=== PATIENT | female | born 1985 | race Caucasian/White ===

== ENCOUNTER 2018-11-10 07:32 | Inpatient (IN) ==
[2018-11-10] MEDS ORDERED: LACTATED RINGER'S 1,000 ML IV PRN ×3 (08:39→11:53)
[2018-11-10] MEDS ORDERED: OXYTOCIN 30 UNITS/500 ML BAG IV PRN ×3 (08:39→15:23)
--- NOTE | 2018-11-10 08:45 | History & Physical Report ---
Date of Service November 10, 2018 Assessment & Plan (1) Intrahepatic cholestasis of in third trimester: 33 yo at 38.3 wks with ICP, IOL at term VSS Afebrile GBS negative Plan to admit, monitor, Start pitocin and then AROM when able History of Present Illness Chief Complaint: Scheduled induction of labor Primary Care Provider: Serge Sandoval Patient is a 33 yo at 38.3 wks , scheduled IOL for ICP She has been itching for a week and Bile acids were 17 MFM recommended IOL No ctxs/ LOF/ VB +FM No WRIGHT/ Change in vision/ N&V/ epig or RUQ pain Her has been complicated by 1) Smoker 2) h/o anxiety, depression, off meds, Xanax as needed 3) AMA 4) Cholecystitis: seen G.Surgery and surgery was recommended after delivery Allergies Allergy/AdvReac Type Severity Reaction Status Date / Time Sulfa (Sulfonamide Allergy Mild Rash Verified 11/10/18 08:54 Antibiotics) Home Medications Home Medications Medication Instructions Recorded Confirmed Type Multivit/Min/Iron/Fol Ac/Pren 1 tab PO DAILY #0 tab 03/09/15 History ( Vitamin) Ibuprofen 600 mg PO Q4H PRN #30 tab 03/11/15 Rx OXYCODONE/ACETAMINOPHEN 5MG/325MG 1 tab PO Q4H PRN #30 tab 03/11/15 Rx (PERCOCET 5MG/325MG) Patient History Family History Other No history of previous surgery No known health problems Social History Preferred Language: Romanian Communication Ability: Effective Research Laboratory Manager Required: No Beliefs That Will Affect Care: None marital status: Current Living Situation: Spouse Other Information That Helps Us Care for You: No Smoking Status: Current every day smoker Hx Alcohol Use: No Hx Substance Use: No OB History FT in 2014 [employer] History No h/o Genital HSV Remote h/o Chlamydia, treated Review of Systems All systems reviewed & are unremarkable except as noted in HPI & below Physical Exam Vital Signs (Past 24 Hours): Last Vital Signs Temp 36.6 C 11/10/18 07:47 Pulse 86 11/10/18 08:00 Resp 18 11/10/18 07:47 BP 112/71 11/10/18 08:00 Constitutional: WD/WN, vitals as above comfortable Respiratory: normal respiratory effort, lungs clear to auscultation normal respiratory effort Auscultation: lungs clear to auscultation bilaterally Cardiovascular: Rate/Rhythm: regular rate and regular rhythm Heart Sounds: normal S1 and normal S2 Gastrointestinal (Abdomen): Abd: soft, NT, Gravid Genitourinary: Cervix: 3/ 30%/ -3 Monitoring External Monitor Categ I Tocodynamometer Ctxs q2-4 min
[2018-11-10 09:14] LABS: Hematocrit (blood only) 36.8 % (37-47); Hemoglobin 12.8 g/dL (12.0-16.0); Mean Corpuscular Volume 96.1 fL (80-100); Platelet Count 222 K/uL (130-400); RDW Coefficient of Variation 14.2 % (11.5-14.5); RDW Standard Deviation 49.8 fL (36.4-46.3); Red Blood Count 3.83 M/uL (4.2-5.4); White Blood Count 13.58 K/uL (4.8-10.8)
[2018-11-10 09:15] LABS: Mean Corpuscular Hgb Conc 34.8 g/dL (32-36)
[2018-11-10] MEDS: LACTATED RINGER'S 1,000 ML IV SCH ×2 (09:30→14:37)
[2018-11-10 09:50] LABS: Albumin Level 2.3 gm/dl (3.4-5.0); BUN Creatinine Ratio 13.5 (10-20); Creatinine Clr Calc Pharmacy 150.7 ml/min; Est GFR (African American) 135.4; Est GFR (Non-African American) 116.8; Potassium 3.6 mmol/L (3.5-5.1)
[2018-11-10 09:51] LABS: Albumin Globulin Ratio 0.6 (0.9-2); Bilirubin,Total 0.5 mg/dl (0.2-1); Globulin 3.9 gm/dl (2.5-4.0); Total Protein 6.2 gm/dl (6.4-8.2)
[2018-11-10] MEDS ORDERED: BUPIVACAINE 0.25% 30 ML VIAL ONE ×2 (11:27→14:34)
[2018-11-10] MEDS ORDERED: ePHEDrine sulfate 50 MG/ML AMP ONE (11:28)
[2018-11-10] MEDS ORDERED: fentaNYL citrate 100 MCG/2 ML VIAL ONE ×2 (11:28→14:34)
[2018-11-10] MEDS ORDERED: fentaNYL 2MCG/ML ROPIV 1.25MG/ML 100 ML BAG EPI ONE (11:29)
--- NOTE | 2018-11-10 11:51 | Anesthesiology Consultation ---
Date of Service November 10, 2018 Assessment & Plan (1) Encounter for pre-operative examination: Chart Review Chart Review: Acceptable Risk for Labor Epidural Consults Requested none ASA ASA2 Proposed Anesthesia Anesthesia Type: Labor Epidural Risk / Benefits Reviewed With: PT / POA / Parent / Guardian, Accepts Plan and Informed Consent Obtained History Height/Weight Height: 6 ft 1 in Weight: 78.471 kg Allergies Allergy/AdvReac Type Severity Reaction Status Date / Time Sulfa (Sulfonamide Allergy Mild Rash Verified 11/10/18 08:54 Antibiotics) Medications Home Medications Medication Instructions Recorded Confirmed Last Taken metoprolol succinate 1 tab PO BID 11/10/18 11/10/18 10/14/18 21:00 oxycodone-acetaminophen See Rx Instructions .ROUTE 11/10/18 11/10/18 11/06/18 21:00 .COMPLEX PRN vit-iron fum-folic ac 1 tab PO DAILY 11/10/18 11/10/18 11/09/18 21:00 [ Vitamin] 1 Active Medications Generic Name Dose Route Start Last Admin Trade Name Chadwickq PRN Reason Stop Dose Admin Lactated Ringer's 1,000 mls @ 150 mls/hr 11/10/18 08:45 11/10/18 11:20 Lr IV 11/12/18 08:44 999 mls/hr .Q6H40M [facility] Infusion Oxytocin 30 units in 500 mls @ 6 mls/hr 11/10/18 08:41 11/10/18 11:05 Pitocin IV 11/12/18 08:40 0.48 units/hr .Q24H PRN 8 mls/hr Labor Induction/Augmentation Titration Protocol 0.36 UNITS/HR Past Medical History Medical History Anxiety Attention deficit disorder (ADD) Past Family History Family History Other No history of previous surgery No known health problems Past Anesthesia History No Hx of Anesthesia Complications and No Family Hx of Anesthesia Complications History of PONV No Motion Sickness Screening History of Motion Sickness: No Social History Smoking Status: Current every day smoker tobacco type: cigarettes Smoking cigarettes per day: 4 Do You Dip or Chew Tobacco: No Hx Alcohol Use: No Hx Substance Use: No Exercise / Class Metabolic Activity II 4-5 Yardwork/Stairs/Walk up hill Physical Exam Vital Signs Last Vital Signs Temp 97.9 F 11/10/18 07:47 Pulse 68 11/10/18 11:45 Resp 18 11/10/18 07:47 BP 112/80 11/10/18 11:45 ENMT Mouth: no dentition abnormality Thyromental Distance: > or= 3.5 Finger Breadths Mallampati Class: II Neck normal visual inspection Respiratory normal respiratory effort Auscultation: lungs clear to auscultation bilaterally Cardiovascular Rate/Rhythm: regular rate and regular rhythm Testing Laboratory Results 11/10/18 09:02 11/10/18 09:02
[2018-11-10] MEDS ORDERED: DiphenhydrAMINE HCL 50 MG/ML VIAL IV PRN (11:53)
[2018-11-10] MEDS ORDERED: NALOXONE HCL 1 MG in SODIUM CHLORIDE 0.9% 1000ML 1,000 ML IV PRN (11:53)
[2018-11-10] MEDS ORDERED: fentaNYL 2MCG/ML ROPIV 1.25MG/ML 100 ML BAG EPI PRN (11:53)
[2018-11-10] MEDS ORDERED: NALBUPHINE HCL INJ 10 MG/ML AMP IV PRN (11:53)
[2018-11-10] MEDS ORDERED: ONDANSETRON INJ 2 MG/ML 2 ML VIAL IV PRN (11:53)
[2018-11-10] MEDS ORDERED: NALOXONE HCL 0.4 MG/1 ML VIAL/CARP IV PRN (11:53)
[2018-11-10] MEDS ORDERED: ePHEDrine sulfate 50 MG/ML AMP IV PRN (11:53)
--- NOTE | 2018-11-10 13:29 | Obstetrical Progress Note ---
Date of Service November 10, 2018 Subjective Patient is reevaluated She feels comfortable now, received epidural FHR had been categ I [place] ctxs q2-4 min VE: 4-5 cm/50%/-2, AROM, clear fluid Continue to monitor Physical Exam Vital Signs (Past 24 Hours): Last Vital Signs Temp 36.6 C 11/10/18 07:47 Pulse 72 11/10/18 13:22 Resp 18 11/10/18 07:47 BP 112/70 11/10/18 13:15 Pulse Ox 98 11/10/18 13:22
--- NOTE | 2018-11-10 14:43 | Obstetrical Progress Note ---
Date of Service November 10, 2018 Subjective Patient has been painful Epidural was bolused VE; 8/ 90%/ +1, ant fontanelle at 9 o'clock FHR categ I, eraly decels with ctxs Continue to monitor Anticipate Physical Exam Vital Signs (Past 24 Hours): Last Vital Signs Temp 36.4 C L 11/10/18 13:55 Pulse 79 11/10/18 14:38 Resp 24 11/10/18 13:55 BP 127/86 11/10/18 14:29 Pulse Ox 85 L 11/10/18 14:38
[2018-11-10] MEDS ORDERED: DIPHTHERIA/TETANUS/PERTUSSIS 0.5 ML SYR/VIAL IM ONE (15:23)
[2018-11-10] MEDS ORDERED: BISACODYL 10 MG SUPP PR PRN (15:23)
[2018-11-10] MEDS ORDERED: BENZOCAINE 20% AER SPR 82.5 GM CAN EXT PRN (15:23)
[2018-11-10] MEDS ORDERED: SUPERCREAM 0.870% 15 GM JAR EXT PRN (15:23)
[2018-11-10] MEDS ORDERED: HYDROCORTISONE ACETATE 25 MG SUPP PR PRN (15:23)
[2018-11-10] MEDS ORDERED: ACETAMINOPHEN 325 MG TAB PO PRN (15:23)
--- NOTE | 2018-11-10 15:40 | Anesthesia Procedure Note ---
Date of Service November 10, 2018 Anesthesia Post Epidural Note Vital Signs Vital Signs: Temp Pulse Resp BP Pulse Ox 97.5 F L 72 24 113/57 L 85 L 11/10/18 13:55 11/10/18 15:39 11/10/18 13:55 11/10/18 15:39 11/10/18 14:49 Pain Intensity Lower Abdomen: Pain Intensity: 0 Notes Mental Status: alert / awake / arousable and participated in evaluation Nausea / Vomiting: adequately controlled Pain: adequately controlled Airway Patency, RR, SpO2: stable & adequate BP & HR: stable & adequate Hydration State: stable & adequate Neuraxial Anesthesia: was administered and sensory block is resolving Anesthetic Complications: no major complications apparent and Pt Satisfied with anesthetic care Epidural: Removed without complications and With tip intact
[2018-11-10] MEDS: OXYCODONE/ACETAMINOPHEN 5mg/325mg TAB PO PRN ×2 (18:33→22:22)
[2018-11-10] MEDS: DOCUSATE SODIUM 100 MG CAP PO SCH (20:57)
[2018-11-10] MEDS: IBUPROFEN 600 MG TAB PO PRN (20:57)
--- NOTE | 2018-11-11 01:21 | Delivery Summary ---
DATE OF OPERATION: 11/10/2018 TIME OF DELIVERY: 1452 p.m. TIME OF DELIVERY OF PLACENTA: 1512 p.m. DETAILS OF DELIVERY: The patient was found to be fully dilated and desired to push. She pushed through 3 contractions and delivered the head without difficulty. Shoulders were delivered with minimal traction. The baby was handed off to the mother where mouth and nose were suctioned. Cord was clamped x2 and cut at 1-minute delay and then cord blood was collected in a special bag per patient request. She desired to donate the cord blood. The vagina and perineum were checked for lacerations. There was a second-degree perineal laceration in the posterior fourchette. It was checked to be second degree by rectal exam. Gloves were changed and then there were first-degree right labial lacerations. The perineal laceration was repaired. The perineal body muscles around the anal sphincter were reinforced and then the mucosa was closed with a 2-0 Vicryl in a running locked fashion, skin in a subcuticular fashion. Excellent hemostasis was achieved, and then the labial lacerations were repaired with 3-0 Vicryl on SH needle in a running fashion. The placenta was found to be in the vagina, delivered spontaneous as intact and complete. Uterus was explored, found to be empty. Lower segment was cleared of all clots and debris. EBL was 200 ml. Fundus was firm. Rectal exam was repeated and noted a good sphincter tone and no sutures felt and the procedure was ended. Mom and baby tolerated the procedure well. Sponge, lap, needle count was correct x2. Baby was a viable male infant, Apgars 8/9. No complications happened and I was present during whole procedure. I attest to the content of the Intraoperative Record and any orders documented therein. Any exceptions are noted below. MTDD
[2018-11-11] MEDS: IBUPROFEN 600 MG TAB PO PRN ×6 (03:32→23:43)
[2018-11-11 07:26] LABS: Hemoglobin 11.2 g/dL (12.0-16.0); Mean Corpuscular Hgb Conc 33.9 g/dL (32-36); Mean Corpuscular Volume 96.2 fL (80-100); Platelet Count 196 K/uL (130-400); RDW Coefficient of Variation 14.1 % (11.5-14.5); RDW Standard Deviation 49.4 fL (36.4-46.3); Red Blood Count 3.43 M/uL (4.2-5.4)
[2018-11-11] MEDS: PRENATAL VITAMIN 1 TAB PO SCH (07:32)
[2018-11-11] MEDS: FERROUS SULFATE 325 MG TAB PO SCH (07:32)
[2018-11-11] MEDS: DOCUSATE SODIUM 100 MG CAP PO SCH ×2 (07:33→19:56)
[2018-11-11] MEDS: OXYCODONE/ACETAMINOPHEN 5mg/325mg TAB PO PRN ×5 (07:33→23:44)
[2018-11-11 07:51] LABS: Albumin Level 1.9 gm/dl (3.4-5.0); BUN Creatinine Ratio 16.7 (10-20); Creatinine Clr Calc Pharmacy 194.7 ml/min; Est GFR (African American) 147.3; Est GFR (Non-African American) 127.1; Potassium 4.1 mmol/L (3.5-5.1)
[2018-11-11 08:05] LABS: Albumin Globulin Ratio 0.6 (0.9-2); Bilirubin,Total 0.3 mg/dl (0.2-1); Globulin 3.1 gm/dl (2.5-4.0)
--- NOTE | 2018-11-11 10:31 | Obstetrical Progress Note ---
Date of Service November 11, 2018 Assessment & Plan (1) normal course: PPD #1 Pt doing well No problems anticipate disch tomorrow Subjective Ambulation: ambulating normally Voiding: no voiding problems Passing Gas:: Yes Diet Tolerance:: regular diet Lochia:: Small Feeding Type:: breast feeding Review of Systems All systems reviewed & are unremarkable except as noted in HPI & below Physical Exam Vital Signs (Past 24 Hours) Last Vital Signs Temp 36.4 C L 11/11/18 08:00 Pulse 54 L 11/11/18 08:00 Resp 18 11/11/18 08:00 BP 128/69 11/11/18 08:00 Pulse Ox 99 11/11/18 08:00 Constitutional WD/WN, vitals as above well developed and well nourished Eyes PERRL, conjunctivae normal, anicteric sclerae Neck trachea midline, no thyromegaly Respiratory normal respiratory effort, lungs clear to auscultation Auscultation: no crackles, no rales and no wheezes Cardiovascular RRR, no murmur, no edema Gastrointestinal (Abdomen) normal bowel sounds, soft, nontender, no hepatosplenomegaly Uterus is below umbilicus Musculoskeletal no cyanosis or clubbing, extremities motor strength 5/5 Skin no rashes, warm and dry Neurologic patellar DTR's 2+ bilat, sensation intact Psychiatric A+Ox3, euthymic affect Genitourinary normal external appearance
[2018-11-11] MEDS ORDERED: BISACODYL 5 MG TABEC PO SCH (20:00)
[2018-11-12] MEDS: OXYCODONE/ACETAMINOPHEN 5mg/325mg TAB PO PRN ×2 (06:34→10:21)
[2018-11-12] MEDS: IBUPROFEN 600 MG TAB PO PRN ×2 (06:34→10:22)
[2018-11-12] MEDS: FERROUS SULFATE 325 MG TAB PO SCH (09:09)
[2018-11-12] MEDS: PRENATAL VITAMIN 1 TAB PO SCH (09:09)
[2018-11-12] MEDS: DOCUSATE SODIUM 100 MG CAP PO SCH (09:09)
[2018-11-12 09:39] LABS: Hematocrit (blood only) 34.1 % (37-47); Hemoglobin 11.4 g/dL (12.0-16.0)
--- NOTE | 2018-11-12 10:34 | Obstetrical Progress Note ---
Date of Service November 12, 2018 Subjective doing well less gall-bladder pain passing gas Physical Exam Vital Signs (Past 24 Hours): Last Vital Signs Temp 36.4 C L 11/12/18 09:25 Pulse 58 L 11/12/18 09:25 Resp 16 11/12/18 09:25 BP 113/77 11/12/18 09:25 Pulse Ox 99 11/12/18 09:25 Constitutional: WD/WN, vitals as above comfortable abdomen soft non-tender fundus firm no edema neg Miguel Angel's plan for discharge today follow up with Dr. Maharaj Results & Data Laboratory Results Laboratory Results - last 72 hr 11/10/18 11/10/18 11/11/18 09:02 09:02 06:36 WBC 13.58 H 12.30 H RBC 3.83 L 3.43 L Hgb 12.8 11.2 L Hct 36.8 L 33.0 L MCV 96.1 96.2 MCH 33.4 32.7 MCHC 34.8 33.9 RDW Std Deviation 49.8 H 49.4 H RDW Coeff of Edith 14.2 14.1 Plt Count 222 196 MPV 12.0 H 12.0 H Sodium 139 Potassium 3.6 Chloride 108 H Carbon Dioxide 23 Anion Gap 8.0 BUN 8 Creatinine 0.62 Est Cr Clr Drug Dosing 150.7 Est GFR ( Amer) 135.4 Est GFR (Non-Af Amer) 116.8 BUN/Creatinine Ratio 13.5 Glucose 79 Calcium 9.0 Total Bilirubin 0.5 AST 43 H ALT 71 Alkaline Phosphatase 252 H Total Protein 6.2 L Albumin 2.3 L Globulin 3.9 Albumin/Globulin Ratio 0.6 L 11/11/18 11/12/18 06:36 09:28 WBC RBC Hgb 11.4 L Hct 34.1 L MCV MCH MCHC RDW Std Deviation RDW Coeff of Edith Plt Count MPV Sodium 140 Potassium 4.1 Chloride 113 H Carbon Dioxide 22 Anion Gap 5.0 BUN 8 Creatinine 0.48 L Est Cr Clr Drug Dosing 194.7 Est GFR ( Amer) 147.3 Est GFR (Non-Af Amer) 127.1 BUN/Creatinine Ratio 16.7 Glucose 68 L Calcium 8.0 L Total Bilirubin 0.3 AST 32 ALT 55 Alkaline Phosphatase 199 H Total Protein 5.0 L D Albumin 1.9 L Globulin 3.1 Albumin/Globulin Ratio 0.6 L
== END 2018-11-12 11:16 | disposition home or self-care (01) | DRG 805 ==
LOC: 4S1 07:32 → 4S2 20:19

== ENCOUNTER 2019-01-14 16:36 | Observation (INO) ==
[2019-01-14] MEDS ORDERED: SODIUM CHLORIDE 0.9% 1000ML 1,000 ML IV ONE (16:55)
[2019-01-14] MEDS ORDERED: ONDANSETRON INJ 2 MG/ML 2 ML VIAL IV STA (16:55)
[2019-01-14] MEDS: MoRPHine SULFATE 4 MG/ML 1 ML CARP\\VIAL IV PRN ×3 (17:13→22:19)
[2019-01-14 17:27] LABS: Basophils # (auto) 0.03 K/uL (0-0.2); Basophils % (auto) 0.3 %; Eosinophils # (auto) 0.11 K/uL (0-0.5); Eosinophils % (auto) 1.1 %; Hematocrit (blood only) 43.9 % (37-47); Hemoglobin 15.5 g/dL (12.0-16.0); Immature Granulocytes # (auto) 0.02 K/uL (0.00-0.02); Immature Granulocytes % (auto) 0.2 %; Lymphocytes # (auto) 3.47 K/uL (1.2-3.4); Lymphocytes % (auto) 36.1 %; Mean Corpuscular Hgb Conc 35.3 g/dL (32-36); Mean Corpuscular Volume 91.3 fL (80-100); Mean Platelet Volume 11.6 fL (7.4-10.4); Monocytes # (auto) 0.74 K/uL (0.11-0.59); Monocytes % (auto) 7.7 %; Neutrophils # (auto) 5.24 K/uL (1.4-6.5); Neutrophils % (auto) 54.6 %; Platelet Count 186 K/uL (130-400); RDW Coefficient of Variation 12.4 % (11.5-14.5); RDW Standard Deviation 41.7 fL (36.4-46.3); Red Blood Count 4.81 M/uL (4.2-5.4); White Blood Count 9.61 K/uL (4.8-10.8)
[2019-01-14 17:46] LABS: Albumin Level 3.9 gm/dl (3.4-5.0); BUN Creatinine Ratio 14.4 (10-20); Calcium 9.1 mg/dl (8.5-10.1); Creatinine Clr Calc Pharmacy 93.8 ml/min; Est GFR (Non-African American) 82.8; Potassium 4.2 mmol/L (3.5-5.1)
[2019-01-14 17:49] LABS: Albumin Globulin Ratio 1.3 (0.9-2); Bilirubin,Total 0.7 mg/dl (0.2-1); Globulin 2.9 gm/dl (2.5-4.0); Total Protein 6.8 gm/dl (6.4-8.2)
--- NOTE | 2019-01-14 18:36 | Emergency Department Note ---
Entered by Renato Argueta acting as a scribe for Francisca Maurer MD History of Present Illness General Chief complaint: Abdominal Pain Stated complaint: INTENSE ABDOMINAL PAIN, S/P CHOLECYSTECTOMY Source: patient History of Present Illness Onset (ago): week(s) 3 Location: abdomen Pain Consistency: + intermittent Maximum Pain Intensity: 10 Exacerbated By: + other (deep breaths) Associated symptoms: no shortness of breath The patient is a 33 year old female who presents to the Emergency Room s/p cholecystectomy with complaints of intermittent RUQ abdominal pain. Dr. Maharaj performed the surgery three weeks ago at [facility] for gallstones. The patient reports that three days after the surgery she again developed RUQ attacks rated at 10/10 that felt the same as her pain prior to the surgery. Her pain has been intermittent since that time. She reports that she had a CT in the ER a couple of weeks ago and they couldnt tell if the stone was stuck. She states that she had blood work a couple of days ago while she was having her pain, and it was consistent with a stuck stone, but I cant get an appointment and I cant get an MRI until January 28. She states that she ran out of her pain medications that she was prescribed after surgery. She reports loss of appetite. She states that she was recently and delivered a child a couple of months ago. She denies shortness of breath with exertion, but she notes that she has worsened upper abdominal pain with deep breaths during her attacks. Home Medications Home Medications Medication Instructions Recorded Confirmed Type PNV,calcium 11-[id number] acid 1 tab PO HS 12/25/18 01/14/19 History [PrePlus] alprazolam 0.25 mg PO UD 01/14/19 01/14/19 History ibuprofen [Advil] 200 mg PO Q6H PRN 01/14/19 01/14/19 History omeprazole 20 mg PO DAILY 01/14/19 01/14/19 History Allergies Allergy/AdvReac Type Severity Reaction Status Date / Time Sulfa (Sulfonamide Allergy Mild Rash Verified 01/14/19 17:23 Antibiotics) Past Med/Surg History Medical History Anxiety Attention deficit disorder (ADD) Surgical History S/P cholecystectomy Family History Other No history of previous surgery No known health problems Social History Preferred Language: Qatari Communication Ability: Effective Computer Systems Auditor Required: No Beliefs That Will Affect Care: None marital status: Current Living Situation: Spouse Other Information That Helps Us Care for You: Yes Feels Safe at Home: Yes Safety Concerns: Feels Safe At This Time Smoking Status: Current every day smoker Tobacco Type: cigarettes Cigarettes Per Day: 1/2 pack of cigarettes daily Do You Dip or Chew Tobacco: No Second Hand Exposure: Yes Tobacco Cessation Education Requested by Patient: No Hx Alcohol Use: No Hx Substance Use: No Review of Systems See HPI for pertinent positives & negatives. and A total of 10 systems reviewed and were otherwise negative Physical Exam Vital Signs Vital Signs - 24 hr 01/14/19 20:00 Pulse Rate [Left Finger] 67 Respiratory Rate 18 Blood Pressure [Left Arm] 105/62 Blood Pressure Mean [Left Arm] 76 Pulse Oximetry 98 Vital signs reviewed. General: Well-appearing female, in no significant distress. HEENT: No scleral icterus, PERRLA, neck supple. Atraumatic. Cardiovascular: Regular rate and rhythm, no extra sounds. Pulmonary: Clear to auscultation bilaterally, normal work of breathing. Abdomen: Soft, mild epigastric tenderness, nondistended, positive bowel sounds, abdominal incision well-healed, no signs of infection. Musculoskeletal: Atraumatic, no peripheral edema. Neurologic: Patient awake alert and oriented x 3. Skin: Warm, dry, no rash Course 1654: The patient was evaluated in room B3B. A complete history and physical examination were performed. 1738: Per medical records, the patients recent blood work on January 11 showed WBC of 11.77, AST of 140, ALT of 91, normal bilirubin, and normal lipase. The patient saw GI on January 08. She had a negative CT of the abdomen and pelvis. On January 06 she had a negative HIDA scan at [facility]. 1924: I consulted Dr. Jenkins GI. 1944: I consulted Dr. Drew [facility] Hospitalist. The patient will be reevaluated for hospitalization. Administered Medications Hydromorphone HCl (Dilaudid) 0.5 mg IV Q3H PRN PRN Reason: Pain Stop: 01/28/19 22:24 Last Admin: 01/15/19 10:09 Dose: 0.5 mg Documented by: [id number] Admin: 01/14/19 23:43 Dose: 0.5 mg Documented by: [id number] Dextrose/Sodium Chloride (D5w And Nss) 1,000 mls @ 125 mls/hr IV .Q8H CHAO Stop: 02/13/19 22:24 Last Admin: 01/15/19 18:14 Dose: 125 mls/hr Documented by: [id number] Infusion: 01/15/19 13:55 Dose: 0 mls/hr Documented by: [id number] Admin: 01/15/19 07:30 Dose: 125 mls/hr Documented by: [id number] Infusion: 01/15/19 07:30 Dose: 125 mls/hr Documented by: [id number] Admin: 01/14/19 23:32 Dose: 125 mls/hr Documented by: [id number] Ceftriaxone Sodium 1,000 mg/ (Dextrose) 50 mls @ 100 mls/hr IV Q24H CHAO; Protocol Stop: 01/24/19 22:24 Last Infusion: 01/15/19 00:02 Dose: 0 mls/hr Documented by: [id number] Admin: 01/14/19 23:32 Dose: 100 mls/hr Documented by: [id number] Prenat Multivit/Fitness Coordinator/Iron/Folic Ac ( Vitamin) 1 tab PO HS CHAO Stop: 02/13/19 22:59 Last Admin: 01/15/19 00:27 Dose: 1 tab Documented by: [id number] Discontinued Medications Fentanyl Citrate (Fentanyl Citrate) 25 mcg IV Q5M PRN PRN Reason: PACU Use Only-Pain Stop: 01/15/19 18:55 Last Admin: 01/15/19 15:40 Dose: 25 mcg Documented by: [id number] Admin: 01/15/19 15:35 Dose: 25 mcg Documented by: [id number] Admin: 01/15/19 15:30 Dose: 25 mcg Documented by: [id number] Admin: 01/15/19 15:25 Dose: 25 mcg Documented by: [id number] Fentanyl Citrate (Fentanyl Citrate) 50 mcg IV Q5M PRN PRN Reason: PACU Use Only-Pain Stop: 01/15/19 20:48 Last Admin: 01/15/19 15:56 Dose: 50 mcg Documented by: [id number] Admin: 01/15/19 15:50 Dose: 50 mcg Documented by: [id number] Glucagon (Glucagen) Confirm Administered Dose 2 mg .ROUTE .STK-MED ONE Stop: 01/15/19 14:35 Last Admin: 01/15/19 18:05 Dose: Not Given Documented by: [id number] Sodium Chloride (Nss 1000ml) 1,000 mls @ 100 mls/hr IV .Q10H ONE Stop: 01/15/19 02:54 Last Infusion: 01/14/19 22:17 Dose: 0 mls/hr Documented by: [id number] Infusion: 01/14/19 18:19 Dose: 0 mls/hr Documented by: [id number] Admin: 01/14/19 17:13 Dose: 100 mls/hr Documented by: [id number] Indomethacin (Indocin) 100 mg TN ONE ONE Stop: 01/15/19 13:01 Last Admin: 01/15/19 14:52 Dose: 100 mg Documented by: [id number] Indomethacin (Indocin) 100 mg TN NOW STA Stop: 01/15/19 13:46 Last Admin: 01/15/19 18:32 Dose: Not Given Documented by: [id number] Morphine Sulfate (Morphine Sulfate) 4 mg IV Q15M PRN PRN Reason: Pain Stop: 01/28/19 16:54 Last Admin: 01/14/19 22:19 Dose: 4 mg Documented by: [id number] Admin: 01/14/19 17:45 Dose: 4 mg Documented by: [id number] Admin: 01/14/19 17:13 Dose: 4 mg Documented by: [id number] Ondansetron HCl (Zofran) 4 mg IV NOW STA Stop: 01/14/19 16:56 Last Admin: 01/14/19 17:13 Dose: 4 mg Documented by: [id number] Pneumococcal Polyvalent Vaccine (Pneumovax-23) 25 mcg IM .ONCE ONE Stop: 01/15/19 04:46 Last Admin: 01/15/19 07:34 Dose: Not Given Documented by: [id number] Medical Decision Making Differential Diagnosis Differential diagnosis includes: appendicitis, diverticulitis, PUD, biliary pathology, UTI, pancreatitis, obstruction, mesenteric ischemia, aortic pathology, infections, inflammatory bowel disease, renal colic, retained biliary stone, as well as others were entertained. Medical Records Attestation: I reviewed the patient's medical records. Home Medications Current Medication List: was personally reviewed by me Laboratory Data Attestation: I reviewed the patient's lab results. Result diagrams: 01/15/19 07:13 01/15/19 07:13 Lab Results 01/14/19 01/14/19 01/14/19 Range/Units 17:15 17:15 19:18 WBC 9.61 (4.8-10.8) K/uL RBC 4.81 (4.2-5.4) M/uL Hgb 15.5 (12.0-16.0) g/dL Hct 43.9 (37-47) % MCV 91.3 (80-100) fL MCH 32.2 (25-34) pg MCHC 35.3 (32-36) g/dL RDW Std Deviation 41.7 (36.4-46.3) fL RDW Coeff of Edith 12.4 (11.5-14.5) % Plt Count 186 (130-400) K/uL MPV 11.6 H (7.4-10.4) fL Immature Gran % (Auto) 0.2 % Neut % (Auto) 54.6 % Lymph % (Auto) 36.1 % Wilkes % (Auto) 7.7 % Eos % (Auto) 1.1 % Baso % (Auto) 0.3 % Immature Gran # (Auto) 0.02 (0.00-0.02) K/uL Neut # (Auto) 5.24 (1.4-6.5) K/uL Lymph # (Auto) 3.47 H (1.2-3.4) K/uL Wilkes # (Auto) 0.74 H (0.11-0.59) K/uL Eos # (Auto) 0.11 (0-0.5) K/uL Baso # (Auto) 0.03 (0-0.2) K/uL Sodium 140 (136-145) mmol/L Potassium 4.2 (3.5-5.1) mmol/L Chloride 109 H (98-107) mmol/L Carbon Dioxide 26 (21-32) mmol/L Anion Gap 5.0 (3-11) BUN 13 (7-18) mg/dl Creatinine 0.90 (0.6-1.2) mg/dl Est Cr Clr Drug Dosing 93.8 ml/min Est GFR ( Amer) 96.0 Est GFR (Non-Af Amer) 82.8 BUN/Creatinine Ratio 14.4 (10-20) Glucose 89 (70-99) mg/dl Calcium 9.1 (8.5-10.1) mg/dl Total Bilirubin 0.7 (0.2-1) mg/dl AST 157 H (15-37) U/L ALT 138 H (12-78) U/L Alkaline Phosphatase 162 H (45-117) U/L Total Protein 6.8 (6.4-8.2) gm/dl Albumin 3.9 (3.4-5.0) gm/dl Globulin 2.9 (2.5-4.0) gm/dl Albumin/Globulin Ratio 1.3 (0.9-2) Lipase 232 (73-393) U/L Urine Color Yellow Urine Appearance Cloudy A (Clear) Urine pH 8.0 H (4.5-7.5) Ur Specific Velpen 1.015 (1.000-1.030) Urine Protein Negative (Negative) Urine Glucose (UA) Negative (Negative) Urine Ketones Trace H (Negative) Urine Blood Negative (Negative) Urine Nitrite Negative (Negative) Urine Bilirubin Negative (Negative) Urine Urobilinogen Negative (Negative) Ur Leukocyte Esterase 2+ H (Negative) Urine RBC 0-4 (0-4) /hpf Urine WBC 10-30 H (0-5) /hpf Ur Epithelial Cells >30 H (0-5) /lpf Urine Bacteria 1+ H (Negative) Urine Mucus Present A (None Prsent) Imaging Data Radiologist's Impression: Radiology results as stated below per my review and the radiologist's interpretation: MR MRCP HISTORY: RUQ pain, s/p cholecystectomy 3 weeks, ? stone TECHNIQUE: MRCP of the abdomen was performed according to standard departmental protocol without the use of contrast. COMPARISON STUDY: Abdomen and pelvis CT 12/25/2018. FINDINGS: The lung bases are clear. No hepatic or splenic masses. The adrenal glands, kidneys, and pancreas are unremarkable. No retroperitoneal lymphadenopathy. Prior cholecystectomy. No fluid at the resection site. Mild intra and extra hepatic bile duct dilatation. The common hepatic duct and bile duct measure up to 8 mm in diameter. This could be due to the patient's postcholecystectomy state. No filling defects within the common bile duct to suggest a stone. IMPRESSION: Prior cholecystectomy with mild intra and extra hepatic bile duct dilatation. This could be due to the patient's postcholecystectomy state. No filling defects within the common bile duct to suggest a stone. Electronically signed by: William Dolan M.D. 01/14/2019 7:08 PM XR chest 1V portable HISTORY: RUQ pain COMPARISON: None. FINDINGS: The lungs are clear. Cardiac silhouette is normal in size. No pleural effusions. No pneumothorax. Dextroscoliosis of the thoracic spine. IMPRESSION: No acute process. Electronically signed by: William Dolan M.D. 01/14/2019 7:23 PM Blood Pressure Blood Pressure Findings: Normal blood pressure Blood Pressure Disposition: did not require urgent referral MDM Narrative This patient was evaluated and appeared to be in no significant distress. IV access was obtained and laboratory work was drawn. Patient was placed on the radiation monitor found to be in a normal sinus rhythm. Patient was medicated with IV morphine and Zofran. She was hydrated with normal saline solution. Laboratory work reveals elevated liver enzymes but a normal bilirubin. Patient's records from [facility] were obtained. MRCP was performed and is negative for filling defects. Patient's case was discussed with Dr. Jenkins of gastroenterology. He has recommended observation stay due to colicky biliary pain and need for ERCP. Dr. Drew of the hospitalist service was consulted for further management. Patient and family were informed of the findings and agree. Impression & Plan Elevated liver enzymes, Biliary colic Discharge Plan Visit Data *Final* Discharge Date/Time: 01/14/19 21:42 Chief Complaint: Abdominal Pain Stated Complaint: INTENSE ABDOMINAL PAIN, S/P CHOLECYSTECTOMY ED Provider: Francisca Maurer Discharge Problem: Elevated liver enzymes, Biliary colic Patient Disposition: Admitted As Inpatient Discharge Instructions Interventions: ED Discharge Assessment Last Done: 01/14/19 21:42 The scribe's documentation has been prepared under my direction and personally reviewed by me in its entirety. I confirm that the note above accurately reflects all work, treatment, procedures, and medical decision making performed by me.
--- NOTE | 2019-01-14 19:09 | Magnetic Resonance Report ---
MR MRCP HISTORY: RUQ pain, s/p cholecystectomy 3 weeks, ? stone TECHNIQUE: MRCP of the abdomen was performed according to standard departmental protocol without the use of contrast. COMPARISON STUDY: Abdomen and pelvis CT 12/25/2018. FINDINGS: The lung bases are clear. No hepatic or splenic masses. The adrenal glands, kidneys, and pa ncreas are unremarkable. No retroperitoneal lymphadenopathy. Prior cholecystectomy. No fluid at the r esection site. Mild intra and extra hepatic bile duct dilatation. The common hepatic duct and bile du ct measure up to 8 mm in diameter. This could be due to the patient's postcholecystectomy state. No f illing defects within the common bile duct to suggest a stone. IMPRESSION: Prior cholecystectomy with mild intra and extra hepatic bile duct dilatation. This could be due to th e patient's postcholecystectomy state. No filling defects within the common bile duct to suggest a st one. Electronically signed by: William Dolan M.D. 01/14/2019 7:08 PM
--- NOTE | 2019-01-14 19:24 | XRay Report ---
XR chest 1V portable HISTORY: RUQ pain COMPARISON: None. FINDINGS: The lungs are clear. Cardiac silhouette is normal in size. No pleural effusions. No pneumot horax. Dextroscoliosis of the thoracic spine. IMPRESSION: No acute process. Electronically signed by: William Dolan M.D. 01/14/2019 7:23 PM
[2019-01-14 19:58] LABS: Appearance Urine Cloudy (Clear); Bilirubin Urine Negative (Negative); Blood Urine Negative (Negative); Color Urine Yellow; Glucose Urine UA Negative (Negative); Ketones Urine Trace (Negative); Leukocyte Esterase Urine 2+ (Negative); Nitrite Urine Negative (Negative); Protein Urine Negative (Negative); Specific Gravity Urine 1.015 (1.000-1.030); Urobilinogen Urine Negative (Negative)
[2019-01-14 20:13] LABS: Epithelial Cell Urine >30 /lpf (0-5)
[2019-01-14 20:14] LABS: Bacteria Urine 1+ (Negative); RBC Urine 0-4 /hpf (0-4)
[2019-01-14 20:15] LABS: Mucus Urine Present (None Prsent)
[2019-01-14] MEDS ORDERED: ALPRAZolam 0.25 MG TABLET PO PRN (22:25)
[2019-01-14] MEDS ORDERED: ONDANSETRON INJ 2 MG/ML 2 ML VIAL IV PRN (22:25)
[2019-01-14] MEDS ORDERED: ACETAMINOPHEN 325 MG TAB PO PRN (22:25)
[2019-01-14] MEDS: cefTRIAXone SODIUM 1,000 MG in DEXTROSE 5% 50 ML IV SCH (23:32)
[2019-01-14] MEDS: D5W AND NSS 1,000 ML IV SCH (23:32)
[2019-01-14] MEDS: HYDROmorphone INJ 0.5 MG/0.5 ML SYR IV PRN (23:43)
[2019-01-15] MEDS: PRENATAL VITAMIN 1 TAB PO SCH ×2 (00:27→20:55)
[2019-01-15] MEDS ORDERED: PNEUMOCOCCAL ADMINISTRATION CHARGE ONE (04:45)
[2019-01-15] MEDS ORDERED: PNEUMOCOCCAL POLYSACCHARIDES 25 MCG/0.5 ML VIAL/SYR IM ONE (04:45)
--- NOTE | 2019-01-15 07:27 | History and Physical Report ---
DATE OF ADMISSION: 01/14/2019 CHIEF COMPLAINT: Abdominal pain. HISTORY OF PRESENT ILLNESS: A 33-year-old female with past medical history significant for attention disorder, generalized anxiety disorder, panic disorder, history of symptomatic PVCs and palpitations, history of intrahepatic cholestasis of in third trimester, status post cholecystectomy about 3 weeks ago presents with ongoing abdominal pain. Even after surgery, the patient is still getting abdominal pain, worse in the epigastric and radiating to his back and also pain in the lower ribs. The attacks last about 4 hours, but after the attacks, the rib pain and back pain lingers. Also some nausea and vomiting. She is eating only plant based healthy diet. Denies any diarrhea or constipation. No burning micturition. She says urine color is normal. Denies any chest pain but whenever she gets attacks, she gets a little short of breath. Denies any headaches. No difficulty swallowing. No earache. No runny nose. No swelling of the legs, ambulates okay. Currently resting comfortably and hemodynamically stable. The patient used to be on Toprol-XL in the past for palpitations, but she stopped. She was on that medication for 6 months, but she stopped about 2 months back as she was doing okay, but she did not see her tube former operator before stopping it. ALLERGIES: SULFA ANTIBIOTICS. PAST MEDICAL HISTORY: As mentioned above. PAST SURGICAL HISTORY: Cyst aspiration, dental surgery, laparoscopic cholecystectomy on 12/22/2018. MEDICATIONS: Currently, the patient is on vitamins, omeprazole 20 mg p.o. daily, alprazolam 0.25 mg as needed, ibuprofen as needed. FAMILY HISTORY: Significant for father who has heart disorder, hypertension. Mother has gallbladder removed. Maternal grandmother had skin cancer. SOCIAL HISTORY: Smokes half pack a day for 9 years. No alcohol use, no drug use. REVIEW OF SYMPTOMS: As per HPI. Rest of review of systems negative. PHYSICAL EXAMINATION: GENERAL: The patient is of moderate build, not in acute distress. VITAL SIGNS: Temperature 36.6, pulse 67, respiratory rate 18, blood pressure 105/62, oxygen 98% room air. HEENT: No pallor, no icterus. Pupils equal, round, reactive to light. NECK: No JVD, no mass, no carotid bruits. CARDIOVASCULAR: S1, S2 heard, regular rate and rhythm, no murmur, no gallop. RESPIRATORY SYSTEM: Normal AP diameter. No accessory muscle use. No wheezing, no crackles. ABDOMEN: Soft. Recent laparoscopic scars seen. No distention. Mild abdominal discomfort, nontender. CENTRAL NERVOUS SYSTEM: Cranial nerves II-XII grossly intact, nonfocal. EXTREMITIES: No edema, no erythema. LABORATORY DATA: WBC 9.6, hemoglobin 15.5, hematocrit 43.9, platelets 186. Sodium 140, potassium 4.2, chloride 109, bicarbonate 26, BUN 13, creatinine 0.9, serum glucose 89, calcium 9.1, total bilirubin 0.7, AST 157, ALT 138, alkaline phosphatase is 162, lipase 232. Urinalysis: Cloudy, leukocyte esterase positive. Chest x-ray: No acute process seen. Cholangiopancreatography MRI: Prior cholecystectomy with mild intra and extrahepatic bile duct dilatation. This could be due to the patient's post-cholecystectomy state. No filling defects in the common bile duct to suggest a stone. ASSESSMENT AND PLAN: This is a 33-year-old female who presents with abdominal pain. 1. Abdominal pain. The patient was diagnosed with intrahepatic cholestasis of in third trimester, status post surgery on 12/22/2018 but still her belly pain is not improved, still having ongoing abdominal pain. Her electrolytes are elevated. AST, ALT, alkaline phosphatase elevated. MRCP scan done in the ER was unremarkable. ER spoke with the GI. There is plan for ERCP with possible sphincterotomy tomorrow. To keep her n.p.o. after midnight and we will give IV fluids D5 normal saline at 120 mL per hour, IV Dilaudid p.r.n., IV antiemetics p.r.n. The patient states she has had these symptoms once before before We will also consider acute intermittent porphyria in differentials and order urinary studies( though may be false positive in hepatobiliary disease). 2. Urinary tract infection. We will follow the cultures. Will start her on Rocephin. 3. History of paroxysmal ventricular contractures and palpitation, no longer on Toprol-XL. We will monitor the heart rate. 4. Gastroesophageal reflux disease, on PPI. 5. Deep venous thrombosis prophylaxis, on SCDs. DISPOSITION: Monitor in the medical floor. Level 1 full code. MTDD
[2019-01-15 07:29] LABS: Hematocrit (blood only) 37.7 % (37-47); Hemoglobin 13.1 g/dL (12.0-16.0); Mean Corpuscular Hgb Conc 34.7 g/dL (32-36); Mean Corpuscular Volume 91.3 fL (80-100); Mean Platelet Volume 10.9 fL (7.4-10.4); Platelet Count 164 K/uL (130-400); RDW Coefficient of Variation 12.6 % (11.5-14.5); RDW Standard Deviation 42.2 fL (36.4-46.3); Red Blood Count 4.13 M/uL (4.2-5.4); White Blood Count 6.11 K/uL (4.8-10.8)
[2019-01-15] MEDS: D5W AND NSS 1,000 ML IV SCH ×2 (07:30→18:14)
[2019-01-15 07:47] LABS: Basophils # (auto) 0.05 K/uL (0-0.2); Basophils % (auto) 0.8 %; Eosinophils % (auto) 3.3 %; Lymphocytes # (auto) 3.31 K/uL (1.2-3.4); Lymphocytes % (auto) 54.2 %; Monocytes # (auto) 0.44 K/uL (0.11-0.59); Monocytes % (auto) 7.2 %; Neutrophils # (auto) 2.11 K/uL (1.4-6.5); Neutrophils % (auto) 34.5 %
[2019-01-15 08:06] LABS: BUN Creatinine Ratio 14.6 (10-20); Calcium 8.7 mg/dl (8.5-10.1); Creatinine Clr Calc Pharmacy 112.6 ml/min; Est GFR (African American) 119.7; Est GFR (Non-African American) 103.3; Magnesium 1.9 mg/dl (1.8-2.4); Potassium 4.1 mmol/L (3.5-5.1)
[2019-01-15 08:14] LABS: Alanine Aminotransferase 96 U/L (12-78); Albumin Level 2.9 gm/dl (3.4-5.0); Alkaline Phosphatase 116 U/L (45-117); Aspartate Aminotransferase 45 U/L (15-37); Bilirubin Direct < 0.1 mg/dl (0-0.2); Bilirubin,Total 0.3 mg/dl (0.2-1); Total Protein 5.2 gm/dl (6.4-8.2)
[2019-01-15] MEDS: HYDROmorphone INJ 0.5 MG/0.5 ML SYR IV PRN ×2 (10:09→20:55)
--- NOTE | 2019-01-15 10:47 | Gastrointestinal Consultation ---
Date of Consultation January 15, 2019 Assessment & Plan (1) Elevated liver enzymes: 33 year old post- female, history of cholestasis at 38 weeks who developed biliary symptoms during recent . S/P cholecystectomy in November following delivery of healthy baby boy. She has had persistent RUQ pain, nausea, vomiting w/ LFT elevation during bouts of her pain. Concern for retained biliary stone. DDX discussed - Keep NPO - Anti emetics PRN - Analgesia PRN - Will expedite endoscopic evaluation - IVF maintenance - Agree w/ PPI - Please see endoscopy report once completed for any additional recommendations - Thank you for allowing us to participate in the care of this patient. Please call with any acute changes, questions or concerns. Please see addendum below with additional recommendation from my supervising physician. Present on Admission?: Yes Supervising Physician Co-Signing Physician Notes Attending attestation I have seen, examined this patient, and agree with the findings and above by our mid-level provider RICO Foreman. -Presentation with intermittent biliary colic with elevations of LFTs, concern for retained gallstone and/or possible SOD. Doing well, evaluation with Dr. Reilly today to include EGD EUS and possible ERCP based upon those findings and discussion with patient. I did have a long discussion with patient about the risks, the benefits, of procedures today. History of Present Illness Reason for Consultation: abd pain Requesting Physician: Rajendra Attending Physician: Meg Chavira MD History of Present Illness 33 year old female with history of scoliosis, anxiety, recent cholecystectomy who presented to the ED for persistent, severe RUQ pain, nausea. GI asked to evaluated. Pt was seen and evaluated, chart reviewed. Known from OP evaluation. Developed RUQ around 28 weeks gestation. Was evaluated by gen surg w/ plans for cholecystectomy following delivery. Did developed cholestasis of , had elevated LFTs during the remainder of her preganncy which had seemed to resolved w/ deliver. Had GB out - persistent RUQ pain s/p cholecystectomy. Intermittent. Worse after PO. Associated w/ mild nausea and vomiting. ABD US w/ gallstones CT w/ post operative changes secondary to cholecystectomy. Biloma/seroma thought less likely. HIDA was unremarkable as well MRCP negative for stone but mild intra and extra hepatic bile duct dilatation. Allergies Allergy/AdvReac Type Severity Reaction Status Date / Time Sulfa (Sulfonamide Allergy Mild Rash Verified 01/14/19 17:23 Antibiotics) Home Medications Home Medications Medication Instructions Recorded Confirmed Type PNV,calcium 00-hdvj-[id number] acid 1 tab PO HS 12/25/18 01/14/19 History [PrePlus] alprazolam 0.25 mg PO UD 01/14/19 01/14/19 History ibuprofen [Advil] 200 mg PO Q6H PRN 01/14/19 01/14/19 History omeprazole 20 mg PO DAILY 01/14/19 01/14/19 History Patient History Medical History Anxiety Attention deficit disorder (ADD) Surgical History S/P cholecystectomy Family History Other No history of previous surgery No known health problems Social History Preferred Language: [place] Communication Ability: Effective Cake Cutter Machine Required: No Beliefs That Will Affect Care: None marital status: Current Living Situation: Spouse Other Information That Helps Us Care for You: Yes Feels Safe at Home: Yes Safety Concerns: Feels Safe At This Time Smoking Status: Current every day smoker Tobacco Type: cigarettes Cigarettes Per Day: 1/2 pack of cigarettes daily Do You Dip or Chew Tobacco: No Second Hand Exposure: Yes Tobacco Cessation Education Requested by Patient: No Hx Alcohol Use: No Hx Substance Use: No Review of Systems Constitutional: no fever, no chills and no anorexia Respiratory: no cough, no chest congestion and no dyspnea Cardiovascular: no chest pain, no radiating jaw, neck or arm pain, no dyspnea on exertion and no palpitations Gastrointestinal: + abdominal pain, + heartburn and + nausea; no belching, no vomiting, no coffee ground emesis, no dysphagia, no cramping, no excessive flatulence, no change in bowel habits and no change in stools Physical Exam Constitutional: + ill appearing Neck: normal visual inspection and trachea midline Respiratory: normal respiratory effort, lungs clear to auscultation Cardiovascular: RRR, no murmur, no edema Gastrointestinal (Abdomen): Inspection/Auscultation: normal bowel sounds Percussion/Palpation: + abdomen tender and abdomen soft; no guarding and abdomen not rigid Skin: no rashes, warm and dry Results & Data Vital Signs (Past 12 Hours) Vital Signs Temp Pulse Resp BP Pulse Ox 01/15/19 10:13 52 L 97/61 L 01/15/19 07:21 36.7 C 65 18 83/51 L 97 Laboratory Results 01/15/19 01/15/19 01/15/19 Range/Units 07:13 07:13 07:13 WBC 6.11 (4.8-10.8) K/uL RBC 4.13 L (4.2-5.4) M/uL Hgb 13.1 (12.0-16.0) g/dL Hct 37.7 (37-47) % MCV 91.3 (80-100) fL MCH 31.7 (25-34) pg MCHC 34.7 (32-36) g/dL RDW Std Deviation 42.2 (36.4-46.3) fL RDW Coeff of Edith 12.6 (11.5-14.5) % Plt Count 164 (130-400) K/uL MPV 10.9 H (7.4-10.4) fL Immature Gran % (Auto) 0.0 % Neut % (Auto) 34.5 % Lymph % (Auto) 54.2 % [place] % (Auto) 7.2 % Eos % (Auto) 3.3 % Baso % (Auto) 0.8 % Immature Gran # (Auto) 0.00 (0.00-0.02) K/uL Neut # (Auto) 2.11 (1.4-6.5) K/uL Lymph # (Auto) 3.31 (1.2-3.4) K/uL [place] # (Auto) 0.44 (0.11-0.59) K/uL Eos # (Auto) 0.20 (0-0.5) K/uL Baso # (Auto) 0.05 (0-0.2) K/uL Sodium 145 (136-145) mmol/L Potassium 4.1 (3.5-5.1) mmol/L Chloride 116 H (98-107) mmol/L Carbon Dioxide 25 (21-32) mmol/L Anion Gap 4.0 (3-11) BUN 11 (7-18) mg/dl Creatinine 0.75 (0.6-1.2) mg/dl Est Cr Clr Drug Dosing 112.6 ml/min Est GFR ( Amer) 119.7 Est GFR (Non-Af Amer) 103.3 BUN/Creatinine Ratio 14.6 (10-20) Glucose 84 (70-99) mg/dl Calcium 8.7 (8.5-10.1) mg/dl Magnesium 1.9 (1.8-2.4) mg/dl Total Bilirubin 0.3 (0.2-1) mg/dl Direct Bilirubin < 0.1 (0-0.2) mg/dl AST 45 H (15-37) U/L ALT 96 H (12-78) U/L Alkaline Phosphatase 116 (45-117) U/L Total Protein 5.2 L D (6.4-8.2) gm/dl Albumin 2.9 L (3.4-5.0) gm/dl Globulin (2.5-4.0) gm/dl Albumin/Globulin Ratio (0.9-2) Lipase (73-393) U/L Urine Color Urine Appearance (Clear) Urine pH (4.5-7.5) Ur Specific [place] (1.000-1.030) Urine Protein (Negative) Urine Glucose (UA) (Negative) Urine Ketones (Negative) Urine Blood (Negative) Urine Nitrite (Negative) Urine Bilirubin (Negative) Urine Urobilinogen (Negative) Ur Leukocyte Esterase (Negative) Urine RBC (0-4) /hpf Urine WBC (0-5) /hpf Ur Epithelial Cells (0-5) /lpf Urine Bacteria (Negative) Urine Mucus (None Prsent) Ur [place] Porphobilinogen U Porphobilinogen Intrp Ur Total Porphyrins Random Uroporphyrins I Random Uroporphyrin III U Rdm Heptacarboxylpor U Rndm Hexacarboxylpor U Rdm Pentacarboxylpor U Random Coproporphyr I U Rndm Coproporphyr III Ur Porphyrins Interp 01/15/19 01/14/19 01/14/19 Range/Units 00:30 19:18 17:15 WBC (4.8-10.8) K/uL RBC (4.2-5.4) M/uL Hgb (12.0-16.0) g/dL Hct (37-47) % MCV (80-100) fL MCH (25-34) pg MCHC (32-36) g/dL RDW Std Deviation (36.4-46.3) fL RDW Coeff of Edith (11.5-14.5) % Plt Count (130-400) K/uL MPV (7.4-10.4) fL Immature Gran % (Auto) % Neut % (Auto) % Lymph % (Auto) % [place] % (Auto) % Eos % (Auto) % Baso % (Auto) % Immature Gran # (Auto) (0.00-0.02) K/uL Neut # (Auto) (1.4-6.5) K/uL Lymph # (Auto) (1.2-3.4) K/uL [place] # (Auto) (0.11-0.59) K/uL Eos # (Auto) (0-0.5) K/uL Baso # (Auto) (0-0.2) K/uL Sodium 140 (136-145) mmol/L Potassium 4.2 (3.5-5.1) mmol/L Chloride 109 H (98-107) mmol/L Carbon Dioxide 26 (21-32) mmol/L Anion Gap 5.0 (3-11) BUN 13 (7-18) mg/dl Creatinine 0.90 (0.6-1.2) mg/dl Est Cr Clr Drug Dosing 93.8 ml/min Est GFR ( Amer) 96.0 Est GFR (Non-Af Amer) 82.8 BUN/Creatinine Ratio 14.4 (10-20) Glucose 89 (70-99) mg/dl Calcium 9.1 (8.5-10.1) mg/dl Magnesium (1.8-2.4) mg/dl Total Bilirubin 0.7 (0.2-1) mg/dl Direct Bilirubin (0-0.2) mg/dl AST 157 H (15-37) U/L ALT 138 H (12-78) U/L Alkaline Phosphatase 162 H (45-117) U/L Total Protein 6.8 (6.4-8.2) gm/dl Albumin 3.9 (3.4-5.0) gm/dl Globulin 2.9 (2.5-4.0) gm/dl Albumin/Globulin Ratio 1.3 (0.9-2) Lipase 232 (73-393) U/L Urine Color Yellow Urine Appearance Cloudy A (Clear) Urine pH 8.0 H (4.5-7.5) Ur Specific [place] 1.015 (1.000-1.030) Urine Protein Negative (Negative) Urine Glucose (UA) Negative (Negative) Urine Ketones Trace H (Negative) Urine Blood Negative (Negative) Urine Nitrite Negative (Negative) Urine Bilirubin Negative (Negative) Urine Urobilinogen Negative (Negative) Ur Leukocyte Esterase 2+ H (Negative) Urine RBC 0-4 (0-4) /hpf Urine WBC 10-30 H (0-5) /hpf Ur Epithelial Cells >30 H (0-5) /lpf Urine Bacteria 1+ H (Negative) Urine Mucus Present A (None Prsent) Ur [place] Porphobilinogen Pending U Porphobilinogen Intrp Pending Ur Total Porphyrins Pending Random Uroporphyrins I Pending Random Uroporphyrin III Pending U Rdm Heptacarboxylpor Pending U Rndm Hexacarboxylpor Pending U Rdm Pentacarboxylpor Pending U Random Coproporphyr I Pending U Rndm Coproporphyr III Pending Ur Porphyrins Interp Pending 01/14/19 Range/Units 17:15 WBC 9.61 (4.8-10.8) K/uL RBC 4.81 (4.2-5.4) M/uL Hgb 15.5 (12.0-16.0) g/dL Hct 43.9 (37-47) % MCV 91.3 (80-100) fL MCH 32.2 (25-34) pg MCHC 35.3 (32-36) g/dL RDW Std Deviation 41.7 (36.4-46.3) fL RDW Coeff of Edith 12.4 (11.5-14.5) % Plt Count 186 (130-400) K/uL MPV 11.6 H (7.4-10.4) fL Immature Gran % (Auto) 0.2 % Neut % (Auto) 54.6 % Lymph % (Auto) 36.1 % [place] % (Auto) 7.7 % Eos % (Auto) 1.1 % Baso % (Auto) 0.3 % Immature Gran # (Auto) 0.02 (0.00-0.02) K/uL Neut # (Auto) 5.24 (1.4-6.5) K/uL Lymph # (Auto) 3.47 H (1.2-3.4) K/uL [place] # (Auto) 0.74 H (0.11-0.59) K/uL Eos # (Auto) 0.11 (0-0.5) K/uL Baso # (Auto) 0.03 (0-0.2) K/uL Sodium (136-145) mmol/L Potassium (3.5-5.1) mmol/L Chloride (98-107) mmol/L Carbon Dioxide (21-32) mmol/L Anion Gap (3-11) BUN (7-18) mg/dl Creatinine (0.6-1.2) mg/dl Est Cr Clr Drug Dosing ml/min Est GFR ( Amer) Est GFR (Non-Af Amer) BUN/Creatinine Ratio (10-20) Glucose (70-99) mg/dl Calcium (8.5-10.1) mg/dl Magnesium (1.8-2.4) mg/dl Total Bilirubin (0.2-1) mg/dl Direct Bilirubin (0-0.2) mg/dl AST (15-37) U/L ALT (12-78) U/L Alkaline Phosphatase (45-117) U/L Total Protein (6.4-8.2) gm/dl Albumin (3.4-5.0) gm/dl Globulin (2.5-4.0) gm/dl Albumin/Globulin Ratio (0.9-2) Lipase (73-393) U/L Urine Color Urine Appearance (Clear) Urine pH (4.5-7.5) Ur Specific [place] (1.000-1.030) Urine Protein (Negative) Urine Glucose (UA) (Negative) Urine Ketones (Negative) Urine Blood (Negative) Urine Nitrite (Negative) Urine Bilirubin (Negative) Urine Urobilinogen (Negative) Ur Leukocyte Esterase (Negative) Urine RBC (0-4) /hpf Urine WBC (0-5) /hpf Ur Epithelial Cells (0-5) /lpf Urine Bacteria (Negative) Urine Mucus (None Prsent) Ur [place] Porphobilinogen U Porphobilinogen Intrp Ur Total Porphyrins Random Uroporphyrins I Random Uroporphyrin III U Rdm Heptacarboxylpor U Rndm Hexacarboxylpor U Rdm Pentacarboxylpor U Random Coproporphyr I U Rndm Coproporphyr III Ur Porphyrins Interp
[2019-01-15] MEDS ORDERED: INDOMETHACIN 50 MG SUPP PR ONE (13:00)
--- NOTE | 2019-01-15 13:36 | History & Physical Bridge Note ---
Date of Service January 15, 2019 History & Physical Bridge Note I have examined the patient, reviewed the History & Physical and in the interval since the performance of the History & Physical I have noted the following changes of clinical significance: no changes noted. I saw and evaluated the patient, we are planning for EGD/ EUS and likely ERCP today. We have discussed the risks to include bleeding, infection, perforation, pain, pancreatitis (up to 20%)
[2019-01-15] MEDS ORDERED: LIDOCAINE HCL 2% 2 ML VIAL/AMP(20MG/ML) INFIL ONE (13:41)
[2019-01-15] MEDS ORDERED: DEXAMETHASONE SOD INJ 4 MG/ML VIAL ONE (13:41)
[2019-01-15] MEDS ORDERED: PROPOFOL IV EMULSION 10 MG/ML 20 ML VIAL IV ONE (13:41)
[2019-01-15] MEDS ORDERED: MIDAZOLAM HCL 1 MG/ML 2ML VIAL ONE (13:41)
[2019-01-15] MEDS ORDERED: fentaNYL citrate 100 MCG/2 ML VIAL ONE (13:41)
[2019-01-15] MEDS ORDERED: ONDANSETRON INJ 2 MG/ML 2 ML VIAL ONE (13:41)
[2019-01-15] MEDS ORDERED: INDOMETHACIN 50 MG SUPP PR STA (13:45)
--- NOTE | 2019-01-15 13:53 | Anesthesiology Consultation ---
Date of Service January 15, 2019 Assessment & Plan Chart Review Chart Review: Acceptable Risk for Surgery and Patient NOT seen in Pre Admission Testing Consults Requested none ASA ASA2 Proposed Anesthesia Anesthesia Type: General Risk / Benefits Reviewed With: PT / POA / Parent / Guardian, Accepts Plan and Informed Consent Obtained History Surgery Operation Date: 01/15/19 14:20 Proposed Procedures p Upper Endoscopic Ultrasonography, - Mellisa Reilly s Endoscopic Retrograde Cholangiopancreatogram - Mellisa Reilly Height/Weight Height: 6 ft 1 in Weight: 68.1 kg Allergies Allergy/AdvReac Type Severity Reaction Status Date / Time Sulfa (Sulfonamide Allergy Mild Rash Verified 01/14/19 17:23 Antibiotics) Medications Home Medications Medication Instructions Recorded Confirmed Last Taken PNV,calcium 09-jsib-mbiqa acid 1 tab PO HS 12/25/18 01/14/19 01/13/19 [PrePlus] alprazolam 0.25 mg PO UD 01/14/19 01/14/19 01/14/19 13:30 ibuprofen [Advil] 200 mg PO Q6H PRN 01/14/19 01/14/19 01/13/19 22:00 400mg omeprazole 20 mg PO DAILY 01/14/19 01/14/19 Unknown Active Medications Generic Name Dose Route Start Last Admin Trade Name Freq PRN Reason Stop Dose Admin Hydromorphone HCl 0.5 mg 01/14/19 22:25 01/15/19 10:09 Dilaudid IV 01/28/19 22:24 0.5 mg Q3H PRN Administration Pain Dextrose/Sodium Chloride 1,000 mls @ 125 mls/hr 01/14/19 22:25 01/15/19 07:30 D5w And Nss IV 02/13/19 22:24 125 mls/hr .Q8H CHAO Administration Ceftriaxone Sodium 1,000 mg/ 50 mls @ 100 mls/hr 01/14/19 23:00 01/15/19 00:02 Dextrose IV 01/24/19 22:24 Infused Q24H CHAO Infusion Protocol Prenat Multivit/Alba/Iron/Folic Ac 1 tab 01/14/19 23:00 01/15/19 00:27 Vitamin PO 02/13/19 22:59 1 tab HS CHAO Administration NPO Date Last Intake of Fluids: 01/14/19 Time Last Intake of Fluids: 22:00 Date Last Intake of Solids: 01/14/19 Time Last Intake of Solids: 22:00 Past Medical History Medical History Anxiety Attention deficit disorder (ADD) Exercise / Class Metabolic Activity II 4-5 Yardwork/Stairs/Walk up hill Past Family History Family History Other No history of previous surgery No known health problems Past Surgical History Surgical History S/P cholecystectomy Past Anesthesia History No Hx of Anesthesia Complications and No Family Hx of Anesthesia Complications History of PONV No Hx of PONV and No Hx of Motion Sickness Social History Smoking Status: Current every day smoker tobacco type: cigarettes Smoking cigarettes per day: 1/2 pack of cigarettes daily Do You Dip or Chew Tobacco: No Hx Alcohol Use: No Hx Substance Use: No Physical Exam Vital Signs Last Vital Signs Temp 36.6 C 01/15/19 12:53 Pulse 52 L 01/15/19 12:53 Resp 20 01/15/19 12:53 BP 101/59 L 01/15/19 12:53 Pulse Ox 97 01/15/19 12:53 Constitutional not obese ENMT Mouth: no dentition abnormality Thyromental Distance: > or= 3.5 Finger Breadths Mallampati Class: II Neck normal visual inspection and trachea midline; neck extension not limited Respiratory normal respiratory effort Auscultation: lungs clear to auscultation bilaterally Cardiovascular Rate/Rhythm: regular rate and regular rhythm Heart Sounds: no murmur Musculoskeletal Spine: normal cervical ROM Neurologic moves all extremities Motor/Sensory: no sensory deficit Psychiatric Orientation: alert and oriented x 3 Testing Laboratory Results 01/15/19 07:13 01/15/19 07:13 01/14/19 19:18 Urine Color Yellow Urine Appearance Cloudy A Urine pH 8.0 H Ur Specific [place] 1.015 Urine Protein Negative Urine Glucose (UA) Negative Urine Ketones Trace H Urine Nitrite Negative Ur Leukocyte Esterase 2+ H Urine RBC 0-4 Urine WBC 10-30 H Ur Epithelial Cells >30 H 01/15/19 13:16 POC Ur Test NEG
[2019-01-15] MEDS ORDERED: ONDANSETRON INJ 2 MG/ML 2 ML VIAL IV PRN (13:55)
[2019-01-15] MEDS ORDERED: PROMETHAZINE HCL 12.5 MG in SODIUM CHLORIDE 0.9% 50 ML IV PRN (13:55)
[2019-01-15] MEDS ORDERED: FLUMAZENIL 0.1 MG/1 ML 10 ML VIAL IV PRN (13:55)
[2019-01-15] MEDS ORDERED: LABETALOL HCL IV 5 MG/ML 20ML IV PRN (13:55)
[2019-01-15] MEDS ORDERED: ePHEDrine sulfate 50 MG/ML AMP IV PRN (13:55)
[2019-01-15] MEDS ORDERED: ATROPINE SULFATE 0.1 MG/ML 10ML SYR IV PRN (13:55)
[2019-01-15] MEDS ORDERED: NALOXONE HCL 0.4 MG/1 ML VIAL/CARP IV PRN (13:55)
--- NOTE | 2019-01-15 14:12 | GI REPORT ---
Patient Name: Nina Gore Procedure Date: 01/15/2019 1:46 PM Date of : 1985 Admit Type: Inpatient Age: 33 Gender: Female Attending MD: Mellisa Reilly DO Procedure: Upper GI endoscopy Providers: Mellisa Reilly DO Referring MD: Bina Mina NP, Damian Crump Indications: Epigastric abdominal pain Medicines: General Anesthesia Complications: No immediate complications. Estimated blood loss: Minimal. Estimated Blood Loss: Estimated blood loss was minimal. Procedure: Pre-Anesthesia Assessment: - Prior to the procedure, a History and Physical was performed, and patient medications, allergies and sensitivities were reviewed. The patient's tolerance of previous anesthesia was reviewed. - The risks and benefits of the procedure and the sedation options and risks were discussed with the patient. All questions were answered and informed consent was obtained. - Patient identification and proposed procedure were verified prior to the procedure by the physician, the nurse and the rn plastic surgery. The procedure was verified in the procedure room. - Pre-procedure physical examination revealed no contraindications to sedation. - ASA Grade Assessment: II - A patient with mild systemic disease. - After reviewing the risks and benefits, the patient was deemed in satisfactory condition to undergo the procedure. - The anesthesia plan was to use general anesthesia. - Immediately prior to administration of medications, the patient was re-assessed for adequacy to receive sedatives. - The heart rate, respiratory rate, oxygen saturations, blood pressure, adequacy of pulmonary ventilation, and response to care were monitored throughout the procedure. - The physical status of the patient was re-assessed after the procedure. After obtaining informed consent, the endoscope was passed under direct vision. Throughout the procedure, the patient's blood pressure, pulse, and oxygen saturations were monitored continuously. The Endoscope was introduced through the mouth, and advanced to the third part of duodenum. The upper GI endoscopy was accomplished without difficulty. The patient tolerated the procedure well. Findings: The examined esophagus was normal. The Z-line was regular and was found 38 cm from the incisors. Diffuse mild inflammation characterized by erosions and granularity was found in the entire examined stomach. Biopsies were taken with a cold forceps for histology. Estimated blood loss was minimal. The examined duodenum was normal. Impression: - Normal esophagus. - Z-line regular, 38 cm from the incisors. - Gastritis. Biopsied. - Normal examined duodenum. Recommendation: - Perform an upper endoscopic ultrasound (UEUS) today. - Await pathology results. Mellisa Reilly D.O. Mellisa Reilly, 01/15/2019 2:11:53 PM This report has been signed electronically. Note Initiated On: 01/15/2019 1:46 PM Number of Addenda: 0 I attest to the content of the Intraoperative Record and orders documented therein, exceptions below {[id number]}
[2019-01-15] MEDS ORDERED: ROCURONIUM BROMIDE 10 MG/ML 5 ML VIAL ONE (14:23)
--- NOTE | 2019-01-15 14:28 | GI REPORT ---
Patient Name: Nina Gore Procedure Date: 01/15/2019 1:51 PM Date of : 1985 Admit Type: Inpatient Age: 33 Gender: Female Attending MD: Mellisa Reilly DO Procedure: Upper EUS Providers: Mellisa Reilly DO Referring MD: Damian Mina d.o., Alyssa Sebastianelli, NP Indications: Elevated liver enzymes, Suspected choledocholithiasis Medicines: General Anesthesia Complications: No immediate complications. Estimated blood loss: Minimal. Estimated Blood Loss: Estimated blood loss was minimal. Procedure: Pre-Anesthesia Assessment: - Prior to the procedure, a History and Physical was performed, and patient medications, allergies and sensitivities were reviewed. The patient's tolerance of previous anesthesia was reviewed. - The risks and benefits of the procedure and the sedation options and risks were discussed with the patient. All questions were answered and informed consent was obtained. - Patient identification and proposed procedure were verified prior to the procedure by the physician, the nurse and the plastic parts fabricator. The procedure was verified in the procedure room. - Pre-procedure physical examination revealed no contraindications to sedation. - ASA Grade Assessment: II - A patient with mild systemic disease. - After reviewing the risks and benefits, the patient was deemed in satisfactory condition to undergo the procedure. - The anesthesia plan was to use general anesthesia. - Immediately prior to administration of medications, the patient was re-assessed for adequacy to receive sedatives. - The heart rate, respiratory rate, oxygen saturations, blood pressure, adequacy of pulmonary ventilation, and response to care were monitored throughout the procedure. - The physical status of the patient was re-assessed after the procedure. After obtaining informed consent, the endoscope was passed under direct vision. Throughout the procedure, the patient's blood pressure, pulse, and oxygen saturations were monitored continuously. The Scope was introduced through the mouth, and advanced to the third part of duodenum. The upper EUS was accomplished without difficulty. The patient tolerated the procedure well. Findings: ENDOSONOGRAPHIC FINDING: : There was no sign of significant endosonographic abnormality in the ampulla. No masses were identified. There was no sign of significant endosonographic abnormality in the left lobe of the liver. Homogeneous parenchyma and no focal pathology were identified. There was dilation in the common bile duct which measured up to 7 mm. One stone was visualized endosonographically in the common bile duct. The stone measured 5 mm in greatest dimension. The stone was oval. It was hyperechoic and characterized by shadowing. There was no sign of significant endosonographic abnormality in the entire pancreas. No masses, the pancreatic duct was thin in caliber. One benign-appearing lymph node was visualized in the delbert hepatis region. It measured 9 mm by 6 mm in maximal cross-sectional diameter. The node was oval, hypoechoic and had poorly defined margins. No lymph nodes were seen during endosonographic examination in the gastrohepatic ligament (level 18), in the celiac region (level 20), in the perigastric region and in the peripancreatic region. There was no sign of significant endosonographic abnormality in the left adrenal gland. No adrenal gland enlargement was identified. Impression: - There was no sign of significant pathology in the ampulla. - There was no evidence of significant pathology in the left lobe of the liver. - There was dilation in the common bile duct which measured up to 7 mm. - One stone was visualized endosonographically in the common bile duct. - There was no sign of significant pathology in the entire pancreas. - One benign lymph node was visualized in the delbert hepatis region. - Endosonographic images of the left adrenal gland were unremarkable. - No specimens collected. Recommendation: - Perform an ERCP today. Mellisa Reilly D.O. Mellisa Reilly DO 01/15/2019 2:28:12 PM This report has been signed electronically. Note Initiated On: 01/15/2019 1:51 PM Number of Addenda: 0 I attest to the content of the Intraoperative Record and orders documented therein, exceptions below {[id number]}
[2019-01-15] MEDS ORDERED: GLUCAGON FOR INJ 1 MG VIAL ONE (14:34)
--- NOTE | 2019-01-15 14:55 | GI REPORT ---
Patient Name: Nina Gore Procedure Date: 01/15/2019 1:54 PM Date of : 1985 Admit Type: Inpatient Age: 33 Gender: Female Attending MD: Mellisa Reilly DO Procedure: ERCP Providers: Mellisa Reilly DO Referring MD: Bina Mina NP, Damian Crump Indications: Common bile duct stone(s), Elevated liver enzymes Medicines: General Anesthesia Complications: No immediate complications. Estimated blood loss: Minimal. Estimated Blood Loss: Estimated blood loss was minimal. Procedure: Pre-Anesthesia Assessment: - Prior to the procedure, a History and Physical was performed, and patient medications, allergies and sensitivities were reviewed. The patient's tolerance of previous anesthesia was reviewed. - The risks and benefits of the procedure and the sedation options and risks were discussed with the patient. All questions were answered and informed consent was obtained. - Patient identification and proposed procedure were verified prior to the procedure by the physician, the nurse and the business development. The procedure was verified in the procedure room. - Pre-procedure physical examination revealed no contraindications to sedation. - ASA Grade Assessment: II - A patient with mild systemic disease. - After reviewing the risks and benefits, the patient was deemed in satisfactory condition to undergo the procedure. - The anesthesia plan was to use general anesthesia. - Immediately prior to administration of medications, the patient was re-assessed for adequacy to receive sedatives. - The heart rate, respiratory rate, oxygen saturations, blood pressure, adequacy of pulmonary ventilation, and response to care were monitored throughout the procedure. - The physical status of the patient was re-assessed after the procedure. After obtaining informed consent, the scope was passed under direct vision. Throughout the procedure, the patient's blood pressure, pulse, and oxygen saturations were monitored continuously. The Scope was introduced through the mouth, and advanced to the duodenum and used to inject contrast into the bile duct. The ERCP was accomplished without difficulty. The patient tolerated the procedure well. Findings: The total fluoroscopy exposure time was 2 minutes. A design center consultant film of the abdomen was obtained. Surgical clips, consistent with a previous cholecystectomy, were seen in the area of the right upper quadrant of the abdomen. The esophagus was successfully intubated under direct vision without detailed examination of the pharynx, larynx, and associated structures, and upper GI tract. The upper GI tract was grossly normal. The major papilla was normal. The bile duct was deeply cannulated with the short-nosed traction sphincterotome and 0.035 in Angled Acrobat 2 guidewire (unable to cannulate with a straigt acrrobat 2). Contrast was injected. I personally interpreted the bile duct images. Contrast extended to the hepatic ducts. The lower third of the main bile duct contained filling defect(s). The biliary orifice was stenotic. This appeared benign. Biliary sphincterotomy was made with a monofilament Fusion OMNI sphincterotome using ERBE electrocautery. There was no post-sphincterotomy bleeding. The biliary tree was swept with an 8.5 t 15 mm balloon starting at the bifurcation. Three pale pigmented stones (pieces) were removed. No stones remained on occlusion cholangiogram. The endoscope was withdrawn from the patient. Indomethacin 100 mg was given via suppository to decrease the risk of post-ERCP pancreatitis (PEP). Impression: - The major papilla appeared normal. - Biliary papillary stenosis, benign. - A filling defect was seen on the cholangiogram. - Choledocholithiasis was found. Complete removal was accomplished by biliary sphincterotomy and balloon extraction. - A biliary sphincterotomy was performed. - The biliary tree was swept. - Indomethacin given to decrease risk of post-ERCP pancreatitis. Recommendation: - Return patient to [facility] for ongoing care. - Clear liquid diet today. - Observe patient's clinical course following today's ERCP with therapeutic intervention. - Return to my office PRN. Mellisa Reilly D.O. Mellisa Reilly DO 01/15/2019 2:54:51 PM This report has been signed electronically. Note Initiated On: 01/15/2019 1:54 PM Number of Addenda: 0 I attest to the content of the Intraoperative Record and orders documented therein, exceptions below {[id number]}
--- NOTE | 2019-01-15 14:56 | Post Operative Brief Note ---
Immediate Post Op Note v1 Date of Surgery January 15, 2019 Pre & Post Diagnosis Operation Date: 01/15/19 14:20 Pre-Op Diagnosis: suspected gallstones Post-Op Diagnosis: mild gastritis; gallstones; Procedure Operation Date: 01/15/19 14:20 Actual Procedures p Esophagogastroduodenoscopy with biopsies, Upper Endoscopic Ultrasonograph y,(Not Applicable) - Mellisa Reilly s Endoscopic Retrograde Cholangiopancreatogram, with sphincterotomy, and gallstone extraction(Not Applicable) - Mellisa Reilly Surgeon Mellisa Reilly Tire Inspector none Estimated Blood Loss 0 Findings Consistent with Post-Op Diagnosis
--- NOTE | 2019-01-15 15:01 | Fluoroscopy Report ---
[place] ERCP biliary ductal CLINICAL HISTORY: 33 years-old Female presenting with EXPLORE DUCTS. TECHNIQUE: Fluoroscopy was provided for endoscopic retrograde cholangiopancreatography. 11 fluoroscop ic image(s) recorded. COMPARISON: MRCP from 01/14/2019. FINDINGS: Procedure: An endoscope projects over the descending duodenum. A catheter has been advanced into the common bile duct. The common duct was opacified with contrast. Questionable filling defects noted in the mid common duct. A balloon was used to clear these defects, which were not evident by the conclus ion of the exam. Catheter advanced into the intrahepatic ducts, which were opacified and nondilated. Cholecystectomy clips noted. Peritoneal spillage: No evidence of peritoneal spillage of contrast. Extrahepatic bile ducts: Common duct with filling defects subsequently cleared with a balloon. Only m ildly dilated. Contrast extends into the small bowel. Intrahepatic bile ducts: There is no intrahepatic bile duct dilatation. Fluoroscopy dosage (mGy): 17.36. Fluoroscopy time: 126.9 seconds. Number or time of high level fluoroscopy (HLF), digital spot, or digital subtraction images: 0. IMPRESSION: Status post cholecystectomy. ERCP for assessment and treatment of possible choledocholithiasis. No co mmon duct stones by the conclusion of the procedure. Electronically signed by: Ramon Camarillo M.D. 01/15/2019 3:00 PM
[2019-01-15] MEDS: fentaNYL citrate 100 MCG/2 ML VIAL IV PRN ×6 (15:25→15:56)
--- NOTE | 2019-01-15 16:06 | Anesthesiology Progress Note ---
Date of Service January 15, 2019 Anesthesia Post Procedure Vital Signs Vital Signs: Temp Pulse Pulse Pulse Resp BP BP 01/15/19 16:00 50 L 20 118/65 01/15/19 15:50 49 L 20 111/70 01/15/19 15:40 50 L 14 114/72 01/15/19 15:30 53 L 14 131/81 01/15/19 15:20 50 L 16 109/67 01/15/19 15:10 52 L 17 119/75 01/15/19 15:02 97.2 F L 62 21 116/70 01/15/19 12:53 97.9 F 52 L 20 101/59 L 01/15/19 10:13 52 L 97/61 L 01/15/19 07:21 98.1 F 65 18 83/51 L 01/14/19 22:03 97.3 F L 53 L 100/69 01/14/19 21:20 66 18 105/76 01/14/19 20:00 67 18 105/62 01/14/19 18:17 59 L 18 110/64 01/14/19 16:41 97.9 F 87 18 112/81 Pulse Ox 01/15/19 16:00 94 01/15/19 15:50 97 01/15/19 15:40 96 01/15/19 15:30 98 01/15/19 15:20 100 01/15/19 15:10 100 01/15/19 15:02 99 01/15/19 12:53 97 01/15/19 10:13 01/15/19 07:21 97 01/14/19 22:03 98 01/14/19 21:20 98 01/14/19 20:00 98 01/14/19 18:17 99 01/14/19 16:41 99 Pain Intensity Right Abdomen: Pain Intensity: 8 Abdomen: Pain Intensity: 8 Transfer of Care Handoff Completed per policy Notes Mental Status: alert / awake / arousable and participated in evaluation Patient Amnestic to Procedure: Yes Nausea / Vomiting: adequately controlled Pain: adequately controlled Airway Patency, RR, SpO2: stable & adequate BP & HR: stable & adequate Hydration State: stable & adequate Anesthetic Complications: no major complications apparent and Pt Satisfied with anesthetic care
--- NOTE | 2019-01-15 20:27 | Hospitalist Progress Note ---
Date of Service January 15, 2019 Assessment & Plan (1) Elevated liver enzymes: 33 year old post- female, history of cholestasis at 38 weeks who developed biliary symptoms during recent . S/P cholecystectomy in November following delivery of healthy baby boy. She has had persistent RUQ pain, nausea, vomiting w/ LFT elevation during bouts of her pain. Appreciate input from GI Patient underwent ERCP, with a retrograde cholangiogram, status post sphincterectomy, with removal of bile duct stone today Clinically much improved post procedure, Right upper quadrant abdominal pain has improved, no nausea, (2) UTI (urinary tract infection): UA positive, ordered for urine culture, on empiric antibiotic with IV Rocephin Patient denies of any symptoms, afebrile, normal white count CODE STATUS: Full code DVT prophylaxis: SCD and teds patient is encouraged to ambulate Disposition: Possible discharge home tomorrow Subjective Status post ERCP earlier, with removal biliary duct stone Patient is status post cholecystectomy approximately 3 weeks ago Physical Exam Constitutional: + ill appearing; not obese ENMT: Mouth: no dentition abnormality Mallampati Class: II Neck: normal visual inspection and trachea midline; neck extension not limited Respiratory: normal respiratory effort, lungs clear to auscultation normal respiratory effort Auscultation: lungs clear to auscultation bilaterally Cardiovascular: RRR, no murmur, no edema Rate/Rhythm: regular rate and regular rhythm Heart Sounds: no murmur Gastrointestinal (Abdomen): Inspection/Auscultation: normal bowel sounds Percussion/Palpation: + abdomen tender and abdomen soft; no guarding and abdomen not rigid Musculoskeletal: Spine: normal cervical ROM Skin: no rashes, warm and dry Neurologic: moves all extremities Motor/Sensory: no sensory deficit Psychiatric: Orientation: alert and oriented x 3 Results & Data Vital Signs (Past 12 Hours) Vital Signs Temp Pulse Pulse Resp BP Pulse Ox 01/15/19 16:10 36.6 C 50 L 13 107/64 96 01/15/19 16:00 50 L 20 118/65 94 01/15/19 15:50 49 L 20 111/70 97 01/15/19 15:40 50 L 14 114/72 96 01/15/19 15:30 53 L 14 131/81 98 01/15/19 15:20 50 L 16 109/67 100 01/15/19 15:10 52 L 17 119/75 100 01/15/19 15:02 36.2 C L 62 21 116/70 99 01/15/19 12:53 36.6 C 52 L 20 101/59 L 97 01/15/19 10:13 52 L 97/61 L
[2019-01-15] MEDS: cefTRIAXone SODIUM 1,000 MG in DEXTROSE 5% 50 ML IV SCH (22:30)
[2019-01-16] MEDS: HYDROmorphone INJ 0.5 MG/0.5 ML SYR IV PRN ×4 (00:23→12:22)
[2019-01-16] MEDS: D5W AND NSS 1,000 ML IV SCH ×2 (01:26→10:39)
[2019-01-16 10:17] LABS: Alanine Aminotransferase 66 U/L (12-78); Albumin Level 3.1 gm/dl (3.4-5.0); Aspartate Aminotransferase 15 U/L (15-37); Bilirubin Direct < 0.1 mg/dl (0-0.2); Blood Urea Nitrogen 8 mg/dl (7-18); Carbon Dioxide 26 mmol/L (21-32); Chloride 111 mmol/L (98-107); Creatinine Clr Calc Pharmacy 88.9 ml/min; Est GFR (African American) 89.9; Est GFR (Non-African American) 77.6; Glucose 137 mg/dl (70-99); Potassium 3.9 mmol/L (3.5-5.1); Sodium 143 mmol/L (136-145)
[2019-01-16 10:20] LABS: Albumin Globulin Ratio 1.2 (0.9-2); Alkaline Phosphatase 110 U/L (45-117); Bilirubin,Total 0.3 mg/dl (0.2-1); Globulin 2.6 gm/dl (2.5-4.0); Total Protein 5.7 gm/dl (6.4-8.2)
--- NOTE | 2019-01-16 11:22 | Gastroenterology Progress Note ---
Date of Service January 16, 2019 Assessment & Plan (1) Elevated liver enzymes: 33 year old post- female, history of cholestasis at 38 weeks who developed biliary symptoms during recent . S/P cholecystectomy in November following delivery baby and persistent RUQ pain, nausea, vomiting w/ LFT elevation during bouts of her pain. Status post 1 day from ERCP with common bile duct stone removed. Labs have improved, no signs of complication from the procedure and symptomatically is b chel. Tolerating full liquid breakfast. Okay to discharge when pain is controlled and tolerating regular diet, follow-up as needed with Dr. Reilly. Subjective Feeling much improved, no nausea vomiting. No to minimal abdominal pain. Physical Exam Physical Exam: Awake alert oriented x3, moving all extremities Heart is regular lungs are clear Abdomen soft nontender No peripheral edema Neurologically intact Smiling and appears more comfortable today. Constitutional: WD/WN, vitals as above Cardiovascular: RRR, no murmur, no edema Gastrointestinal (Abdomen): normal bowel sounds, soft, nontender, no hepatosplenomegaly Results & Data Vital Signs (Past 12 Hours) Vital Signs Temp Pulse Resp BP Pulse Ox 01/16/19 07:00 36.5 C 54 L 16 113/65 97 01/16/19 05:42 110/71 01/16/19 00:30 117/76
--- NOTE | 2019-01-16 13:09 | Hospitalist Progress Note ---
Date of Service January 16, 2019 Assessment & Plan (1) Elevated liver enzymes: 33 year old post- female, history of cholestasis at 38 weeks who developed biliary symptoms during recent . S/P cholecystectomy in November following delivery of healthy baby boy. She has had persistent RUQ pain, nausea, vomiting w/ LFT elevation during bouts of her pain. Patient with elevated liver enzymes, secondary to choledocholithiasis Appreciate input from GI Patient underwent ERCP, with a retrograde cholangiogram, status post sphincterectomy, with removal of bile duct stone yesterday 01/15/2019 Right upper quadrant pain, nausea, completely resolved, patient remained hemodynamically stable, afebrile, tolerating diet Stable to be discharged home today, will follow-up with GI Dr. Herbie Reilly in 4 to 6 weeks GERD EGD showed inflammation and gastric lining suggestive of acid reflux, patient is asked to continue with omeprazole 20 mg daily Instruction given avoid spicy/hot food, small frequent meal (2) UTI (urinary tract infection): Urine culture: Positive for lactobacillus more than 100,000 CFU /ml Was treated with IV Rocephin for 2 days Patient will be discharged with p.o. Keflex for 2 more days Family physician follow-up in a week Patient denies of any symptoms, afebrile, normal white count CODE STATUS: Full code DVT prophylaxis: SCD and teds patient is encouraged to ambulate Disposition: Stable to be discharged home today Subjective Patient reports of feeling well, no abdominal pain, no nausea, afebrile, diet advanced to solid, tolerating well Physical Exam Constitutional: + ill appearing; not obese ENMT: Mouth: no dentition abnormality Mallampati Class: II Neck: normal visual inspection and trachea midline; neck extension not limited Respiratory: normal respiratory effort, lungs clear to auscultation normal respiratory effort Auscultation: lungs clear to auscultation bilaterally Cardiovascular: RRR, no murmur, no edema Rate/Rhythm: regular rate and regular rhythm Heart Sounds: no murmur Gastrointestinal (Abdomen): Inspection/Auscultation: normal bowel sounds Percussion/Palpation: + abdomen tender and abdomen soft; no guarding and abdomen not rigid Musculoskeletal: Spine: normal cervical ROM Skin: no rashes, warm and dry Neurologic: moves all extremities Motor/Sensory: no sensory deficit Psychiatric: Orientation: alert and oriented x 3 Results & Data Vital Signs (Past 12 Hours) Vital Signs Temp Pulse Resp BP Pulse Ox 01/16/19 11:39 36.5 C 54 L 16 113/65 97 01/16/19 07:00 36.5 C 54 L 16 113/65 97 01/16/19 05:42 110/71
--- NOTE | 2019-01-16 13:10 | Discharge Summary ---
Date of Service January 16, 2019 Admission HPI Per Admitting Provider DICTATED BY: Mike Drew MD DATE OF ADMISSION: 01/14/2019 CHIEF COMPLAINT: Abdominal pain. HISTORY OF PRESENT ILLNESS: A 33-year-old female with past medical history significant for attention disorder, generalized anxiety disorder, panic disorder, history of symptomatic PVCs and palpitations, history of intrahepatic cholestasis of in third trimester, status post cholecystectomy about 3 weeks ago presents with ongoing abdominal pain. Even after surgery, the patient is still getting abdominal pain, worse in the epigastric and radiating to his back and also pain in the lower ribs. The attacks last about 4 hours, but after the attacks, the rib pain and back pain lingers. Also some nausea and vomiting. She is eating only plant based healthy diet. Denies any diarrhea or constipation. No burning micturition. She says urine color is normal. Denies any chest pain but whenever she gets attacks, she gets a little short of breath. Denies any headaches. No difficulty swallowing. No earache. No runny nose. No swelling of the legs, ambulates okay. Currently resting comfortably and hemodynamically stable. The patient used to be on Toprol-XL in the past for palpitations, but she stopped. She was on that medication for 6 months, but she stopped about 2 months back as she was doing okay, but she did not see her wire wheeler before stopping it. Principal Diagnosis Obstructive biliary stone, status post ERCP, UTI Discharge Exam Constitutional + ill appearing; not obese ENMT Mouth: no dentition abnormality Mallampati Class: II Neck normal visual inspection and trachea midline; neck extension not limited Respiratory normal respiratory effort, lungs clear to auscultation normal respiratory effort Auscultation: lungs clear to auscultation bilaterally Cardiovascular RRR, no murmur, no edema Rate/Rhythm: regular rate and regular rhythm Heart Sounds: no murmur Gastrointestinal (Abdomen) Inspection/Auscultation: normal bowel sounds Percussion/Palpation: + abdomen tender and abdomen soft; no guarding and abdomen not rigid Musculoskeletal Spine: normal cervical ROM Skin no rashes, warm and dry Neurologic moves all extremities Motor/Sensory: no sensory deficit Psychiatric Orientation: alert and oriented x 3 Discharge Data Allergies Allergy/AdvReac Type Severity Reaction Status Date / Time Sulfa (Sulfonamide Allergy Mild Rash Verified 01/14/19 17:23 Antibiotics) Consultations 01/14/19 19:51 ED Decision to Admit Stat 01/14/19 22:25 Consult Gastroenterology Routine Procedures Performed Operation Date: 01/15/19 14:20 Actual Procedures p Esophagogastroduodenoscopy with biopsies, Upper Endoscopic Ultrasonography,(Not Applicable) - Mellisa Reilly s Endoscopic Retrograde Cholangiopancreatogram, with sphincterotomy, and gallsto ne extraction(Not Applicable) - Mellisa Reilly Ordered Studies 01/14/19 16:55 MR MRCP Stat 01/15/19 13:00 [place] ERCP biliary ductal Routine 01/15/19 13:45 US upper EUS PACS images Routine Hospital Course (1) Elevated liver enzymes: 33 year old post- female, history of cholestasis at 38 weeks who developed biliary symptoms during recent . S/P cholecystectomy in November following delivery of healthy baby boy. She has had persistent RUQ pain, nausea, vomiting w/ LFT elevation during bouts of her pain. Patient with elevated liver enzymes, secondary to choledocholithiasis Appreciate input from GI Patient underwent ERCP, with a retrograde cholangiogram, status post sphincterectomy, with removal of bile duct stone yesterday 01/15/2019 Right upper quadrant pain, nausea, completely resolved, patient remained hemodynamically stable, afebrile, tolerating diet Stable to be discharged home today, will follow-up with GI Dr. Herbie Reilly in 4 to 6 weeks GERD EGD showed inflammation and gastric lining suggestive of acid reflux, patient is asked to continue with omeprazole 20 mg daily Instruction given avoid spicy/hot food, small frequent meal (2) UTI (urinary tract infection): Urine culture: Positive for lactobacillus more than 100,000 CFU /ml Was treated with IV Rocephin for 2 days Patient will be discharged with p.o. Keflex for 2 more days Family physician follow-up in a week Patient denies of any symptoms, afebrile, normal white count CODE STATUS: Full code DVT prophylaxis: SCD and teds patient is encouraged to ambulate Disposition: Stable to be discharged home today Total Time Total Time Spent Total Time Spent (In Minutes): Approximately 45 minutes Total Time Includes: Examination of the Patient, Discharge Planning, Medication Reconciliation and Communication With Other Providers Discharge Plan Discharge Items Patient Disposition: Home - Self-Care Reason For Visit: ABDOMINAL PAIN Discharge Diagnosis: BILIARY DUCT RETAINED GALL STONE /UTI Discharge Goals: Decrease discomfort Activity: Resume your previous activity Non-emergency contact: Primary Care Provider Call non-emergency contact if: you have any medication questions Follow-up/Referrals: Mellisa Reilly [Physician] - (IN 4-6 WEEKS ) Damian Crump DO [Primary Care Provider] - 01/20/19 11:05 am Diet: Low Fat Diet Comment: LOW FAT DIET FOR APPROX 1 WEEK Addtl Provider Instructions: DO NOT TAKE -ASPIRIN,ALEVE, ADVIL ,IBUPROPHEN , NAPROXEN , MOTRIN FOR PAIN CAN CAUSE WORSENING OF ACID REFLUX , FURTHER INFLAMMATION IN STOMACH /CAN TAKE TYLENOL NEED FOR PAIN CONTINUE TO TAKE OMEPRAZOLE 20 MG DAILY HOSPITAL FOLLOW UP WITH DR CRUMP ON 01/20/19 @ 11: 05 AM SMALL FREQUENT MEALS AVOID HOT /SPICY FOOD LIMIT TAKING PERCOCET -DO NOT BREAST FEED FOR 24 HRS IF TAKING PERCOCET TAKE STOOL SOFTENER -MIRALAX /COLACE WHILE TAKING PERCOCET TO PREVENT CONSTIPATION Prescriptions: New oxycodone-acetaminophen [Percocet] 2.5-325 mg tablet 1 tab PO Q8H PRN (Reason: pain) Qty: 6 RF: 0 cephalexin [Keflex] 250 mg capsule 250 mg PO Q6H 2 Days Qty: 8 RF: 0 Continued PrePlus 27 mg iron- 1 mg tablet 1 tab PO HS RF: 0 alprazolam 0.25 mg tablet 0.25 mg PO UD RF: 0 omeprazole 20 mg capsule,delayed release(DR/EC) 20 mg PO DAILY RF: 0 Discontinued ibuprofen [Advil] 200 mg Tablet 200 mg PO Q6H PRN (Reason: Pain) RF: 0 Stand-Alone Forms: Call Back Authorization, [facility]/Other Patient Handouts: Cooking Tips Low Fat, GERD, GERD Lifestyle Changes Discharge Orders: Discharge Order (Routine); Ordered 01/16/19 Ordered By: Meg Chavira Admission Data Admit Date/Time: 01/14/19 20:55 Attending Provider: Meg Chavira Admit Provider: Mike Drew Primary Care Provider: Damian Crump Other Providers: Mike Drew ; Cash Babin ; Hernan Adrian ; Venus Mckay ; Haseeb Jenkins ; Mellisa Reilly ; Jovani Jimenez ; Rosanne Petersen ; Edgardo Bowling ; Aiden Mata ; Bina Camilo ; Dara Mojica ; Taya Santo ; Samaria Montejo ; Vane Mathews Service: Medical Other Interventions: Discharge Summary Assessment (RN) Last Done: 01/16/19 11:39
[2019-01-23 20:19] LABS: Coproporphyrins I Random Ur 51.6 (6.5-33.2); Heptacarboxylporphyrins Urine 0.8 (< OR = 3.4); Pentacarboxylporph Ur 1.3 (< OR = 4.1); Porphobilinogen Ran Ur 0.7 mg/g creat (<2.3)
== END 2019-01-16 13:18 | disposition home or self-care (01) ==
LOC: ED 16:36 → 4W 20:55 → INTOOBSV 20:55 → 4W 21:42

== ENCOUNTER 2024-06-17 13:48 | Inpatient (IN) ==
--- NOTE | 2024-06-17 14:29 | Emergency Department Note ---
Impression & Plan Facial cellulitis, Failure of outpatient treatment ED Provider Note CHIEF COMPLAINT: Worsening facial pain and infection HISTORY OF PRESENT ILLNESS: Patient is a 38-year-old female with past medical history significant for anxiety/depression who returns to the emergency department at the advice of [facility] for inpatient care for a worsening facial infection. Patient was initially seen in our facility on 06/13, 4 days ago, with right sided facial/jaw pain. She had developed facial swelling. She had a thorough workup, including IV Unasyn and CT scan of the face which confirmed right mandibular cellulitis with a small abscess and a periapical cyst with dental caries. Patient was discharged on Augmentin and referred to Dr. Haywood for evaluation. She was alternating Tylenol and ibuprofen using oxycodone for pain, all without relief. She was seen in his office just prior to arrival. Per his note, symptoms are worsening, he feels that she has failed outpatient management and will likely require IV antibiotics and OR. Subjectively reports fever, chills and sweats, but has been taking Tylenol and ibuprofen [id number]. REVIEW OF SYSTEMS: Review of systems as per HPI. All other systems reviewed were negative. 10 systems reviewed. PMH: External medical records are reviewed and summarized as above/below. See Problem List. SOCIAL HISTORY: Patient lives at home. PHYSICAL EXAM: Vital Signs: Reviewed Nurse's notes. CONSTITUTIONAL: Mildly uncomfortable but nontoxic-appearing 38-year-old female in no acute distress. She is managing her own secretions. EYES: Pupils equal, round, reactive to light and accommodation. EOMs intact without nystagmus. Sclera are anicteric. ENT: Tympanic membranes intact, with normal landmarks. External canals are clear. Nasopharynx is clear. Examination of the oropharynx notes swelling of the submental space and right lower jawline. She has multiple carious teeth. Mucous membranes are moist. Trismus noted. FACE: There is swelling of the right lower jawline, and submandibular space. NECK: Cervical chain lymphadenopathy noted. No nuchal rigidity. CARDIOVASCULAR: Regular rate and rhythm. Peripheral pulses easily palpable. RESPIRATORY: Breath sounds equal and clear to auscultation. INTEGUMENTARY: No lesions or rash, normal skin turgor. ED course: The patient was seen and assessed as above. External medical records were reviewed, including FS note and ED note from a couple of days ago. IV lock was initiated. Laboratory studies were collected including CBC with differential, CMP, test and urinalysis. She was ordered Unasyn 3 g IV. She was medicated with morphine and Zofran for pain. [facility] Laboratory studies per my interpretation note a mildly elevated white count at 10,900 with left shift. No significant electrolyte imbalance or RIGOBERTO. Nonfasting glucose mildly elevated. test negative. Urine microscopy is clear. Patient was seen in the ED by Dr. Haywood, he was attempting to arrange OR. Differential diagnoses entertained included facial cellulitis, drainable abscess, Kalin's angina, among others. Past Med/Surg History Problem List Empyema lung Tobacco abuse Dental caries Failure of outpatient treatment (Acute) Facial cellulitis (Acute) Cellulitis, mouth floor Cellulitis of face (Acute) Failure of outpatient treatment Dental abscess (Acute) History of sphincterotomy of sphincter of Oddi History of ERCP Elevated liver enzymes (Acute) UTI (urinary tract infection) Biliary colic (Acute) Intrahepatic cholestasis of in third trimester normal course Encounter for pre-operative examination Medical History Attention deficit disorder (ADD) Anxiety Surgical History Tubal ligation status S/P cholecystectomy Family History Father , 41 Heart disease Myocardial infarction Other No history of previous surgery No known health problems Social History Smoking Status: Current every day smoker Tobacco Type: Cigarettes Cigarettes Per Day: 1/2 pack of cigarettes daily; Second Hand Exposure: Yes; Do You Dip or Chew Tobacco: No; Hx Alcohol Use: No Hx Substance Use: No Preferred Language: Hungarian Communication Ability: Effective Geology Instructor Required: No Beliefs That Will Affect Care: None marital status: Current Living Situation: Spouse How many Children do You have: 2 Feels Safe at Home: Yes during the past year weight has: remained stable Assistive Devices: None Allergies Allergies Allergy/AdvReac Type Severity Reaction Status Date / Time Sulfa (Sulfonamide Allergy Mild Rash Verified 01/14/19 17:23 Antibiotics) Home Meds Home Medications Medication Instructions Recorded Confirmed clonazepam 0.5 mg tablet 0.5 mg PO BID PRN Anxiety 06/17/24 06/17/24 desvenlafaxine succinate 100 mg 100 mg PO DAILY 06/17/24 06/17/24 tablet,extended release 24 hr gabapentin 600 mg tablet 600 mg PO DAILY 06/17/24 06/17/24 Results & Data (ED) Vital Signs Vital Signs - 24 hr 06/17/24 13:48 06/17/24 13:48 Temperature 36.6 C Temperature Source Temporal Artery Scan Pulse Rate 93 H Respiratory Rate 18 18 Blood Pressure 155/117 H Blood Pressure Mean 129 Pulse Oximetry 97 Oxygen Delivery Method Room Air Sepsis Recent Fever Within 48 Hours No Sepsis New/Unexplained Change in Mental Status N/A Sepsis Action Taken by Nursing No Action Required Home Medications Current Medication List: was personally reviewed by me Laboratory Data Attestation: I reviewed the patient's lab results. 06/17/24 14:29 06/17/24 14:29 Lab Results 06/17/24 Range/Units 14:29 WBC 10.97 H (4.8-10.8) K/ul RBC 4.68 (4.20-5.40) M/uL Hgb 14.2 (12.0-16.0) g/dl Hct 43.2 (37.0-47.0) % MCV 92.3 (80.0-100.0) fL MCH 30.3 (25.0-34.0) pg MCHC 32.9 (32.0-36.0) g/dL RDW Std Deviation 43.2 (36.4-46.3) fL RDW Coeff of Edith 12.9 (11.5-14.5) % Plt Count 264 (130-400) K/uL MPV 10.9 (9.4-12.4) fL Immature Gran % (Auto) 0.3 % Neut % (Auto) 72.3 % Lymph % (Auto) 22.8 % Mcminn % (Auto) 3.5 % Eos % (Auto) 0.6 % Baso % (Auto) 0.5 % Neut # (Auto) 7.93 H (1.40-6.50) K/uL Lymph # (Auto) 2.50 (1.20-3.40) K/uL Mcminn # (Auto) 0.38 (0.11-0.59) K/uL Eos # (Auto) 0.07 (0.00-0.50) K/uL Baso # (Auto) 0.06 (0.00-0.20) K/uL Immature Gran # (Auto) 0.03 (0.01-0.20) K/uL Sodium 137 (136-145) mmol/L Potassium 3.9 (3.5-5.1) mmol/L Chloride 106 (98-107) mmol/L Carbon Dioxide 25 (21-32) mmol/L Anion Gap 6 (3-11) BUN 9 (6-23) mg/dl Creatinine 0.76 (0.6-1.2) mg/dl Est Cr Clr Drug Dosing 85.9 ml/min eGFR 101.52 BUN/Creatinine Ratio 11.8 (10-20) Glucose 152 H (70-99(Fasting)) mg/dl Calcium 9.3 (8.6-10.3) mg/dl Total Bilirubin 0.3 (0.2-1.0) mg/dl AST 18 (13-39) U/L ALT 35 (7-52) U/L Alkaline Phosphatase 58 (34-104) U/L Total Protein 6.9 (6.0-8.3) gm/dl Albumin 4.3 (3.4-5.0) gm/dl Globulin 2.6 (2.5-4.0) gm/dl Albumin/Globulin Ratio 1.7 (0.9-2) HCG, Qual Negative (Negative) Administered Medications Acetaminophen (Acetaminophen 500 Mg Tab) 500 mg PO QID [facility] Stop: 07/17/24 16:59 Last Admin: 06/17/24 17:19 Dose: 500 mg Documented By: ADB Hydromorphone HCl (Hydromorphone Inj 0.5 Mg/0.5 Ml Syr) 0.5 mg IV Q4H PRN PRN Reason: Severe Pain (Scale 7, 8, 9,10) Stop: 07/01/24 16:16 Last Admin: 06/17/24 16:28 Dose: 0.5 mg Documented By: ADB Lactated Ringer's (Lr) 1,000 mls @ 125 mls/hr IV .Q8H [facility] Stop: 06/17/24 23:29 Last Admin: 06/17/24 16:31 Dose: 125 mls/hr Documented By: SCOTT Oxycodone HCl (Oxycodone Hcl Ir 5 Mg Tab (Immediate Release)) 5 mg PO Q6H PRN PRN Reason: Moderate Pain (Scale 4, 5, 6) Stop: 07/01/24 16:16 Last Admin: 06/17/24 17:18 Dose: 5 mg Documented By: SCOTT Discontinued Medications Ampicillin Sodium/Sulbactam Sodium (Unasyn) 3,000 mg in 100 mls @ 200 mls/hr IV NOW STA Stop: 06/17/24 14:58 Last Infusion: 06/17/24 15:59 Dose: Infused Documented By: Admin: 06/17/24 15:29 Dose: 200 mls/hr Documented By: MEGAN Morphine Sulfate (Morphine Sulfate 4 Mg/Ml 1 Ml Carp\Vial) 4 mg IV NOW STA Stop: 06/17/24 14:55 Last Admin: 06/17/24 15:24 Dose: 4 mg Documented By: MEGAN Ondansetron HCl (Ondansetron Inj 2 Mg/Ml 2 Ml Vial) 4 mg IV NOW STA Stop: 06/17/24 14:55 Last Admin: 06/17/24 15:21 Dose: 4 mg Documented By: MEGAN Discharge Plan Visit Data Chief Complaint: Dental/Oral Stated Complaint: DOUBLE TOOTH INFECTION/ADMIT/DOC REF, FACIAL SURG ED Provider: Ubaldo Colvin ED Midlevel Provider: Marielena Fragoso Discharge Problem: Facial cellulitis, Failure of outpatient treatment Patient Disposition: Admitted As Inpatient Discharge Instructions Interventions: ED Discharge Assessment Last Done: 06/17/24 15:42
[2024-06-17 14:47] LABS: Basophils # (auto) 0.06 K/uL (0.00-0.20); Basophils % (auto) 0.5 %; Eosinophils # (auto) 0.07 K/uL (0.00-0.50); Eosinophils % (auto) 0.6 %; Hematocrit (blood only) 43.2 % (37.0-47.0); Hemoglobin 14.2 g/dl (12.0-16.0); Immature Granulocytes # (auto) 0.03 K/uL (0.01-0.20); Immature Granulocytes % (auto) 0.3 %; Lymphocytes % (auto) 22.8 %; Mean Corpuscular Hemoglobin 30.3 pg (25.0-34.0); Mean Corpuscular Hgb Conc 32.9 g/dL (32.0-36.0); Mean Corpuscular Volume 92.3 fL (80.0-100.0); Mean Platelet Volume 10.9 fL (9.4-12.4); Monocytes # (auto) 0.38 K/uL (0.11-0.59); Monocytes % (auto) 3.5 %; Neutrophils # (auto) 7.93 K/uL (1.40-6.50); Neutrophils % (auto) 72.3 %; Platelet Count 264 K/uL (130-400); RDW Coefficient of Variation 12.9 % (11.5-14.5); RDW Standard Deviation 43.2 fL (36.4-46.3); Red Blood Count 4.68 M/uL (4.20-5.40); White Blood Count 10.97 K/ul (4.8-10.8)
[2024-06-17 15:03] LABS: Albumin Globulin Ratio 1.7 (0.9-2); Albumin Level 4.3 gm/dl (3.4-5.0); BUN Creatinine Ratio 11.8 (10-20); Bilirubin,Total 0.3 mg/dl (0.2-1.0); Calcium 9.3 mg/dl (8.6-10.3); Creatinine Clr Calc Pharmacy 85.9 ml/min; Globulin 2.6 gm/dl (2.5-4.0); Potassium 3.9 mmol/L (3.5-5.1); Total Protein 6.9 gm/dl (6.0-8.3)
[2024-06-17] MEDS: ONDANSETRON INJ 2 MG/ML 2 ML VIAL IV STA (15:21)
[2024-06-17] MEDS: MoRPHine SULFATE 4 MG/ML 1 ML CARP\\VIAL IV STA (15:24)
--- NOTE | 2024-06-17 15:24 | History & Physical Report ---
Date of Service June 17, 2024 Assessment & Plan (1) Dental abscess: (2) Dental caries: (3) Empyema lung: (4) Failure of outpatient treatment: (5) Tobacco abuse: (6) Cellulitis, mouth floor: Plan This is a 38 yr old F who has a significant PMH of Depression with anxiety and tobacco abuse who presents to ED 2/[address] Haywood due to worsening abscess and dental infection. Dental abscess with evidence of cellulitis to mouth floor Large dental caries admit to med/surg consult oromaxillofacial Dr. Haywood Keep NPO until timing of OR is determined IV unasyn 3g q6 hr ICE TID IV toradol prn mild pain, Oral Oxy IR for moderate pain, prn IV dilaudid severe pain scheduled APAP Tobacco abuse Pulmonary emphysema as noted on CT soft tissue neck encourage cessation she declines nicotine patch Depression with Anx/ADHD: continue home meds DVT ppx: encourage ambulation FULL CODE PCP: Alisia Dispo: admit to med/surg Pt was seen and examined in collaboration with Dr. Donnelly, please see addendum I spent a total of 60 minutes reviewing notes, outpatient records, labs, medication, coordinating, documenting and providing care for this patient excluding time spent in the performance of separately billed services. History of Present Illness Chief Complaint: Referred by Dr. Haywood for worsening abscess and dental infection. Primary Care Provider: Damian Crump DO This is a 38 yr old F who has a significant PMH of Depression with anxiety and tobacco abuse who presents to ED 2/[address] Haywood due to worsening abscess and dental infection. She was seen in ED on 06/13 due to pain to R cheek/chin area that had been worsening for a few months. She received 3g IV unasyn x 1 and discharged home on oral Augmentin. Her sx to her R check have decreased minimally in size but she still had a great deal of pain. She was set up to see Dr. Haywood today who feels she needs to undergo surgical I and D and multiple tooth extraction. Hx obtained from pt, mother at bedside, chart review and ED provider. Plan is to go to OR later today or tomorrow. Pt reports significant pain to R mandibular area and swelling. She rates her pain 8.5/10. She has been using Tylenol, ibuprofen and oral oxy IR w/o relief. She reports mild nausea but no vomiting. Initially she had fever prior to presenting to ED, but that has since resolved. She denies chills, dizziness, lightheaded, chest pain, sob, vomiting, diarrhea, change in bowel or urinary habits. In ED she received IV antibiotics and will be given IV analgesia. She currently smokes 0.5ppd and has a medical marijuana card. She denies any other elicit substance use and states she rarely drinks alcohol. Her Father sustained a fatal OK at the age of 42 otherwise no pertinent medical hx. Allergies Allergy/AdvReac Type Severity Reaction Status Date / Time Sulfa (Sulfonamide Allergy Mild Rash Verified 01/14/19 17:23 Antibiotics) Home Medications Medication Instructions Recorded Confirmed Type clonazepam 0.5 mg tablet 0.5 mg PO BID PRN Anxiety 06/17/24 06/17/24 History desvenlafaxine succinate 100 mg 100 mg PO DAILY 06/17/24 06/17/24 History tablet,extended release 24 hr gabapentin 600 mg tablet 600 mg PO DAILY 06/17/24 06/17/24 History Past Med/Surg History Problem List (Updated 06/17/24 @ 15:18 by Ivonne Garza PA-C) Empyema lung Tobacco abuse Dental caries Failure of outpatient treatment (Acute) Facial cellulitis (Acute) Failure of outpatient treatment Cellulitis, mouth floor Cellulitis of face (Acute) Dental abscess (Acute) History of sphincterotomy of sphincter of Oddi History of ERCP Elevated liver enzymes (Acute) UTI (urinary tract infection) Biliary colic (Acute) Intrahepatic cholestasis of in third trimester normal course Encounter for pre-operative examination Medical History Attention deficit disorder (ADD) Anxiety Surgical History Tubal ligation status S/P cholecystectomy Family History Father , 41 Heart disease Myocardial infarction Other No history of previous surgery No known health problems Social History Smoking Status: Current every day smoker Tobacco Type: Cigarettes Cigarettes Per Day: 1/2 pack of cigarettes daily; Second Hand Exposure: Yes; Do You Dip or Chew Tobacco: No; Hx Alcohol Use: No Hx Substance Use: No Preferred Language: Malawian Communication Ability: Effective Ranch Supervisor Required: No Beliefs That Will Affect Care: None marital status: Current Living Situation: Spouse How many Children do You have: 2 Feels Safe at Home: Yes during the past year weight has: remained stable Assistive Devices: None Review of Systems Review of Systems: All systems reviewed & are unremarkable except as noted in HPI & below Physical Exam Physical Exam: Constitutional: WD/WN, vitals as above, NAD, sitting up in bed, pleasant, co nversing easily Head: Normocephalic, Atraumatic Eyes: PERRL, conjunctivae normal, anicteric sclerae ENMT: external ear and nose normal, oropharynx normal, poor dentition, R mandibular swelling and area of fluctuance with submental swelling Neck: trachea midline, no thyromegaly normal visual inspection Respiratory: normal respiratory effort, lungs clear to auscultation, no wheeze, rales, rhonchi. Normal insp/exp effort, no accessory muscle use Cardiovascular: RRR, no murmur, no edema Vessels: no JVD or carotid bruit Chest: normal inspection of chest Abdomen: normal bowel sounds, soft, nontender, no hepatosplenomegaly Musculoskeletal: no cyanosis or clubbing, AROM x4 Skin: no rashes, warm and dry normal turgor Neurologic: no face palsy, no dysarthria CN's II-XI intact bilaterally and moves all extremities Psychiatric: A+Ox3, euthymic affect Results & Data Results & Data Vital Signs (Past 12 Hours) Vital Signs Temp Pulse Resp BP Pulse Ox O2 Del Method 06/17/24 13:48 18 06/17/24 13:48 36.6 C 93 H 18 155/117 H 97 Room Air Diagnostic Findings Soft tissue NECK CT from 06/13 IMPRESSION: 1. Large dental caries with periapical cyst formation of the right mandibular se cond bicuspid. 2. Right mandibular cellulitis with 10 mm abscess. 3. Pulmonary emphysema with biapical pleural-parenchymal scarring. COVID-19 Results Results COVID-19 Adm Lab Results: RBC 4.68 M/uL (4.20-5.40) 06/17/24 WBC 10.97 K/ul (4.8-10.8) H 06/17/24 Hgb 14.2 g/dl (12.0-16.0) 06/17/24 Hct 43.2 % (37.0-47.0) 06/17/24 Plt Count 264 K/uL (130-400) 06/17/24 Neutrophils (%) (Auto) 72.3 % 06/17/24 Lymphocytes (%) (Auto) 22.8 % 06/17/24 Monocytes # (Auto) 0.38 K/uL (0.11-0.59) 06/17/24 Eosinophils # (Auto) 0.07 K/uL (0.00-0.50) 06/17/24 Immature Granulocyte % (Auto) 0.3 % 06/17/24 Neutrophils # (Auto) 7.93 K/uL (1.40-6.50) H 06/17/24 Lymphocytes # (Auto) 2.50 K/uL (1.20-3.40) 06/17/24 Monocytes # (Auto) 0.38 K/uL (0.11-0.59) 06/17/24 Eosinophils # (Auto) 0.07 K/uL (0.00-0.50) 06/17/24 Basophils # (Auto) 0.06 K/uL (0.00-0.20) 06/17/24 Immature Granulocyte # (Auto) 0.03 K/uL (0.01-0.20) 4 Na 137 mmol/L (136-145) 06/17/24 K 3.9 mmol/L (3.5-5.1) 06/17/24 Cl 106 mmol/L (98-107) 06/17/24 Anion Gap 6 (3-11) 06/17/24 BUN 9 mg/dl (6-23) 06/17/24 Creatinine 0.76 mg/dl (0.6-1.2) 06/17/24 BUN/Creatinine Ratio 11.8 (10-20) 06/17/24 Glucose Level 152 mg/dl (70-99(Fasting)) H 06/17/24 Ca 9.3 mg/dl (8.6-10.3) 06/17/24 Total Bilirubin 0.3 mg/dl (0.2-1.0) 06/17/24 AST/SGOT 18 U/L (13-39) 06/17/24 ALT/SGPT 35 U/L (7-52) 06/17/24 Alkaline Phosphatase 58 U/L (34-104) 06/17/24 Total Protein 6.9 gm/dl (6.0-8.3) 06/17/24 Albumin 4.3 gm/dl (3.4-5.0) 06/17/24 Globulin 2.6 gm/dl (2.5-4.0) 06/17/24 Albumin/Globulin Ratio 1.7 (0.9-2) 06/17/24 Code Status & VTE Plan Code Status FULL CODE VTE Prophylaxis Plan VTE Prophylaxis will be ordered: No Supervising Physician Co-Signing Physician Notes 38-year-old lady with PMH of depression with anxiety and tobacco abuse presented to the ED at referral from FS due to worsening abscess and dental infection. Labs fairly WNL, WBC trending down. Patient has been on amoxicillin for dental infection as an outpatient, reports fever and nausea has gotten better, reports swelling and pain has gotten a little worse. Continue with ampicillin, n.p.o. until FS eval and possible surgical intervention. Pain management. On exam: GENERAL: Alert and oriented x3. NAD, on RA. HEENT: No pallor, no icterus. Pupils equal, round and reactive to light. Oral mucosa moist. NECK: No JVD, no neck masses. Rt submandibular and rt submental region swelling/tender noted. HEART: S1 and S2 heard. Regular rate and rhythm. No murmur, no gallop. RESPIRATORY SYSTEM: Normal AP diameter. No accessory muscle use. No wheezing, no crackles. ABDOMEN: Soft, bowel sounds present, nontender, no distention. CENTRAL NERVOUS SYSTEM: No facial droop. Speech is clear. Obeys simple commands. Moves extremities. EXTREMITIES: No edema, no erythema seen. I have seen and examined the patient and have discussed the case with the provider above. I agree with the assessment and plan as stated. Time spent: 25 min
[2024-06-17] MEDS: AMPICILLIN/SULBACTAM SOD 3,000 MG/100 ML BAG IV STA (15:29)
[2024-06-17 15:42] LABS: Pregnancy Test, Serum Negative (Negative)
[2024-06-17 15:47] LABS: Appearance Urine Clear (Clear); Bilirubin Urine Negative (Negative); Blood Urine Negative (Negative); Color Urine Yellow; Glucose Urine UA Negative (Negative); Ketones Urine Negative (Negative); Leukocyte Esterase Urine Negative (Negative); Nitrite Urine Negative (Negative); Protein Urine Negative (Negative); Specific Gravity Urine 1.007 (1.000-1.030); Urobilinogen Urine Negative (Negative)
[2024-06-17] MEDS: HYDROmorphone INJ 0.5 MG/0.5 ML SYR IV PRN (16:28)
[2024-06-17] MEDS: LACTATED RINGER'S 1,000 ML IV SCH (16:31)
--- NOTE | 2024-06-17 16:55 | Oral/Maxillofacial Consult ---
Date of Consultation June 17, 2024 Assessment & Plan (1) Cellulitis, mouth floor: (2) Cellulitis of face: (3) Dental abscess: (4) Empyema lung: (5) Tobacco abuse: (6) Dental caries: (7) Failure of outpatient treatment: (8) Facial cellulitis: (9) Failure of outpatient treatment: History of Present Illness Attending Physician: Jaycee Donnelly MD History of Present Illness Oral Maxillofacial Surgery Exam Present Complaint: I have pain/swelling/drainage from my infected lower right teeth. Symptoms have been ongoing for a while. Was in the ER on Jun 13 placed on antibiotics and given IV-after 4 days minimal change in symptoms, still pain, swelling. Submandibular swelling less but floor of the mouth and mucobuccal fold worse. Mucobuccal fold is obliterated by swelling. The masseter space and retromolar area is swollen and tender Muscle trismus secondary to infection Oral Exam: Finding--swelling associated with the fractured and abscessed #28,30,31, tender gingival tissue with deep pocket formation.Teeth are in an abnormal position and removal is clinical indicated. Floor of mouth, Mucobuccal fold and masseter space abscess infected Trismus noted Acute pain Imaging: The CT was reviewed, there were no abnormal findings other then the impacted/malposed wisdom teeth. The TMJ are well positioned and no evidence of bony pathology. The sinus, supporting bone all WNL Evaluated the nerve/sinus relationship to the roots of the teeth. The following teeth were carious and fractured 28,30,31 Bilateral asymptomatic mandibular chandu CT soft tissue neck w con HISTORY: 38 years-old Female right sided swelling acute right-sided facial pain with soft tissue swelling FINDINGS: Pulmonary emphysema with mild biapical pleural-parenchymal scarring. Unremarkable thyroid, parotid and submandibular glands. Mild to moderate enlargement of the lingual tonsils. The epiglottis, glottis and subglottic airway appear unremarkable. The imaged vasculature the neck is within normal limits. The imaged intracranial structures and orbits are unremarkable. Streak artifact from dental amalgam hardware limits the study. There is subcutaneous and deep tissue edema within the right mandibular lateral tissues centered around a 2 x 10 mm peripherally enhancing abscess on image 143 abutting the mandibular alveolar ridge. This is adjacent to a large periapical cyst and dental caries involving the right mandibular second bicuspid. Moderate intervertebral disc space narrowing and posterior disc osteophyte complex at C5- C6. The patient has several missing teeth with several additional scattered dental caries and periapical cysts. IMPRESSION: 1. Large dental caries with periapical c yst formation of the right mandibular second bicuspid.2. Right mandibular cellulitis with 10 mm abscess.3. Pulmonary emphysema with biapical pleural-parenchymal scarring. Soft tissue: The right floor of the mouth and mucobuccal fold are swollen and tender,. The tongue, hard/soft palate, posterior pharyngeal area all with in normal limits, no pathology or abnormal findings noted. No lesions noted that require follow up or Bx. Oral Care: Overall oral care is fair Occlusion: Class I TMJ exam: No pop, clicking, pain, good ROM, No history of TMJ injury or dysfunction Periodontal exam: Chronic inflamed lower right side in gingival tissue with early evidence of per iodontal pathology. Head/Neck exam: Neck is supple, FROM, Able to extend and flex neck w/o difficulty, no masses, no abnormalities, no airway issues, Treatment Plan: Has not responded to outpatient antibiotic therapy, still in a lot of pain, swelling only slightly improved. In view of the poor response to the oral out patient improvement IV antibiotics needed with I&D and extractions of # 28,30,31 in 24-48 hours. Limited dietary intake, taking a lot of Tylenol and Motrin for pain control will little effect Set up with general anesthesia in hospital vs. surgical due to complexity of the procedure I suggested that she return to the ER so we can get her admitted for IV antibiotics and set her up DAVIE for I&D with associate extractions. I reviewed the treatment plan and consent with the patient and her sister Understanding was expressed. Time was given for questions regarding the surgery, risks and post op care. Discussed alternative to treatment--procedure as planned, Do not do surgery The following teeth are decayed and fractured and removal is indicated DAVIE: 28,30,31 with right side I&D Plan OR tomorrow at 1:15 pm Risks discussed: Bleeding,Pain,swelling,infection, dry socket, delayed healing, nerve injury to face,lips,tongue,chin area which could be permanent (rare). TMJ, jaw stiffness, change in bite (rare), ear pain (referred). Sinus problems like fistula or infection. Need to leave a small root fragment in place to avoid injury to nerve or sinus. Relationship of teeth to nerve/sinus and risk of jaw fracture. Plan OR tomorrow at 1:15 pm 28,30,31 with right side I&D masseter space and mucobuccal/floor of mouth Allergies Allergy/AdvReac Type Severity Reaction Status Date / Time Sulfa (Sulfonamide Allergy Mild Rash Verified 01/14/19 17:23 Antibiotics) Home Medications Medication Instructions Recorded Confirmed Type clonazepam 0.5 mg tablet 0.5 mg PO BID PRN Anxiety 06/17/24 06/17/24 History desvenlafaxine succinate 100 mg 100 mg PO DAILY 06/17/24 06/17/24 History tablet,extended release 24 hr gabapentin 600 mg tablet 600 mg PO DAILY 06/17/24 06/17/24 History Patient History Medical History Attention deficit disorder (ADD) Anxiety Surgical History Tubal ligation status S/P cholecystectomy Family History Father , 41 Heart disease Myocardial infarction Other No history of previous surgery No known health problems Social History Smoking Status: Current every day smoker Tobacco Type: Cigarettes Cigarettes Per Day: 1/2 pack of cigarettes daily; Second Hand Exposure: Yes; Do You Dip or Chew Tobacco: No; Hx Alcohol Use: No Hx Substance Use: No Preferred Language: Niuean Communication Ability: Effective Cross Country/Track And Field Coach Required: No Beliefs That Will Affect Care: None marital status: Current Living Situation: Spouse How many Children do You have: 2 Feels Safe at Home: Yes during the past year weight has: remained stable Assistive Devices: None Results & Data Vital Signs (Past 12 Hours) Vital Signs Temp Pulse Pulse Resp BP BP Pulse Ox 06/17/24 15:33 71 12 133/84 96 06/17/24 13:48 18 06/17/24 13:48 36.6 C 93 H 18 155/117 H 97 O2 Del Method 06/17/24 15:33 Room Air 06/17/24 13:48 06/17/24 13:48 Room Air PG Care Time/CCT Total # of Minutes Spent Total Time Spent with Patient: Total time spent is greater than 50% in coordination of care (as documented) at patient's floor/unit and/or counseling patient: Coding Level of Care Code None Diagnoses Cellulitis, mouth floor K12.2 Cellulitis of face L03.211 Dental abscess K04.7 Empyema lung J86.9 Tobacco abuse Z72.0 Dental caries K02.9 Failure of outpatient treatment Z78.9
[2024-06-17] MEDS: oxyCODONE HCL IR 5 MG TAB (IMMEDIATE RELEASE) PO PRN (17:18)
[2024-06-17] MEDS: ACETAMINOPHEN 500 MG TAB PO SCH (17:19)
[2024-06-17] MEDS: KETOROLAC TROMETHAMINE 15 MG/ML VIAL IV PRN (18:24)
[2024-06-17] MEDS: clonazePAM 0.5 MG TAB PO PRN (19:55)
[2024-06-17] MEDS: DOCUSATE SODIUM/SENNA 50/8.6MG TAB PO SCH (20:50)
[2024-06-17] MEDS: AMPICILLIN/SULBACTAM SOD 3,000 MG/100 ML BAG IV SCH (21:24)
[2024-06-18] MEDS: GABAPENTIN 600 MG TAB PO SCH (07:35)
[2024-06-18] MEDS: ADVANCED PROBIOTIC 625 MG CAPSULE PO SCH (07:35)
[2024-06-18 08:23] LABS: Basophils # (auto) 0.06 K/uL (0.00-0.20); Basophils % (auto) 0.9 %; Eosinophils # (auto) 0.24 K/uL (0.00-0.50); Eosinophils % (auto) 3.5 %; Hematocrit (blood only) 40.6 % (37.0-47.0); Hemoglobin 13.2 g/dl (12.0-16.0); Immature Granulocytes # (auto) 0.02 K/uL (0.01-0.20); Immature Granulocytes % (auto) 0.3 %; Lymphocytes # (auto) 2.85 K/uL (1.20-3.40); Lymphocytes % (auto) 42.1 %; Mean Corpuscular Hemoglobin 30.6 pg (25.0-34.0); Mean Corpuscular Hgb Conc 32.5 g/dL (32.0-36.0); Mean Platelet Volume 10.9 fL (9.4-12.4); Monocytes # (auto) 0.49 K/uL (0.11-0.59); Monocytes % (auto) 7.2 %; Neutrophils # (auto) 3.11 K/uL (1.40-6.50); Platelet Count 231 K/uL (130-400); RDW Coefficient of Variation 12.9 % (11.5-14.5); RDW Standard Deviation 44.5 fL (36.4-46.3); Red Blood Count 4.32 M/uL (4.20-5.40); White Blood Count 6.77 K/ul (4.8-10.8)
[2024-06-18 08:34] LABS: BUN Creatinine Ratio 12.7 (10-20); Creatinine Clr Calc Pharmacy 82.6 ml/min; Potassium 4.2 mmol/L (3.5-5.1)
[2024-06-18 09:04] LABS: Estimated Average Glucose 105 mg/dl; Hemoglobin A1C 5.3 % (4.5-5.6)
[2024-06-18] MEDS: ONDANSETRON INJ 2 MG/ML 2 ML VIAL IV PRN (11:58)
[2024-06-18] MEDS ORDERED: OXYMETAZOLINE 0.05% 30 ML BTL ONE (13:03)
[2024-06-18] MEDS ORDERED: ROCURONIUM BROMIDE 10 MG/ML 5 ML VIAL IV ONE (13:07)
[2024-06-18] MEDS ORDERED: PROPOFOL IV EMULSION 10 MG/ML 20 ML VIAL IV ONE (13:07)
[2024-06-18] MEDS ORDERED: ONDANSETRON INJ 2 MG/ML 2 ML VIAL ONE (13:07)
[2024-06-18] MEDS ORDERED: fentaNYL citrate PF 100 MCG/2 ML VIAL ONE ×2 (13:07→13:55)
[2024-06-18] MEDS ORDERED: MIDAZOLAM HCL 1 MG/ML 2ML VIAL ONE (13:07)
[2024-06-18] MEDS ORDERED: DEXAMETHASONE SOD INJ 4 MG/ML VIAL ONE ×2 (13:07→14:09)
[2024-06-18] MEDS ORDERED: ePHEDrine sulfate 50 MG/ML AMP IV PRN (13:11)
[2024-06-18] MEDS ORDERED: PROMETHAZINE HCL 6.25 MG in SODIUM CHLORIDE 0.9% 50 ML IV PRN (13:11)
[2024-06-18] MEDS ORDERED: ONDANSETRON INJ 2 MG/ML 2 ML VIAL IV PRN (13:11)
[2024-06-18] MEDS ORDERED: ATROPINE SULFATE 0.1 MG/ML 10ML SYR IV PRN (13:11)
--- NOTE | 2024-06-18 13:11 | Anesthesiology Consultation ---
Date of Service June 18, 2024 Assessment & Plan (1) Encounter for pre-operative examination: Chart Review Chart Review: Acceptable Risk for Surgery and Patient NOT seen in Pre Admission Testing Consults Requested none History Surgery Operation Date: 06/18/24 13:15 Proposed Procedures p Right Lower Jaw Incision and Drainage - Casa Haywood DMD s Extraction , - Cas[facility] DMD Height/Weight Height: 6 ft 1 in Weight: 55.3 kg Allergies Allergy/AdvReac Type Severity Reaction Status Date / Time Sulfa (Sulfonamide Allergy Mild Rash Verified 06/18/24 12:16 Antibiotics) Medications Home Medications Medication Instructions Recorded Confirmed Last Taken clonazepam 0.5 mg tablet 0.5 mg PO BID PRN Anxiety 06/17/24 06/17/24 Unknown desvenlafaxine succinate 100 mg 100 mg PO DAILY 06/17/24 06/17/24 Unknown tablet,extended release 24 hr gabapentin 600 mg tablet 600 mg PO DAILY 06/17/24 06/17/24 Unknown Active Medications Generic Name Dose Route Start Last Admin Trade Name Freq PRN Reason Stop Dose Admin Acetaminophen 500 mg 06/17/24 17:00 06/18/24 12:14 Acetaminophen 500 Mg Tab PO 07/17/24 16:59 Not Given QID CHAO Clonazepam 0.5 mg 06/17/24 16:17 06/17/24 19:55 Clonazepam 0.5 Mg Tab PO 07/17/24 16:16 0.5 mg BID PRN Administration Anxiety Gabapentin 600 mg 06/18/24 09:00 06/18/24 07:35 Gabapentin 600 Mg Tab PO 07/18/24 08:59 Not Given DAILY CHAO Hydromorphone HCl 0.5 mg 06/17/24 16:17 06/18/24 09:17 Hydromorphone Inj 0.5 Mg/0.5 Ml Syr IV 07/01/24 16:16 0.5 mg Q4H PRN Administration Severe Pain (Scale 7, 8, 9,10) Ampicillin Sodium/Sulbactam Sodium 3,000 mg in 100 mls @ 200 mls/hr 06/17/24 22:00 06/18/24 09:50 Unasyn IV 06/24/24 21:59 Infused Q6H CHAO Infusion Ketorolac Tromethamine 15 mg 06/17/24 16:17 06/17/24 18:24 Ketorolac Tromethamine 15 Mg/Ml Vial IV 06/22/24 16:16 15 mg Q6H PRN Administration Mild Pain (Scale 1, 2, 3) Lactobacillus Acidophilus 1,250 mg 06/18/24 09:00 06/18/24 07:35 Advanced Probiotic 625 Mg Capsule PO 07/18/24 08:59 Not Given DAILY CHAO Miscellaneous 1 each 06/18/24 00:00 06/18/24 07:46 Order Awaiting Action [Desvenlafaxine Succinate 100 Mg Tablet Extended Release 24 Hr] N/A 07/18/24 00:00 Not Given QS CHAO Ondansetron HCl 4 mg 06/17/24 16:17 06/18/24 11:58 Ondansetron Inj 2 Mg/Ml 2 Ml Vial IV 07/17/24 16:16 4 mg Q6H PRN Administration Nausea Oxycodone HCl 5 mg 06/17/24 16:17 06/17/24 23:42 Oxycodone Hcl Ir 5 Mg Tab (Immediate Release) PO 07/01/24 16:16 5 mg Q6H PRN Administration Moderate Pain (Scale 4, 5, 6) Senna/Docusate Sodium 1 tab 06/17/24 21:00 06/18/24 07:35 Docusate Sodium/Senna 50/8.6mg Tab PO 07/17/24 20:59 Not Given BID CHAO NPO Date Last Intake of Fluids: 06/17/24 Time Last Intake of Fluids: 23:30 Date Last Intake of Solids: 06/17/24 Time Last Intake of Solids: 17:00 Past Medical History Medical History (Updated 06/18/24 @ 13:11 by Shane Barbosa MD) Tobacco abuse Facial cellulitis Cellulitis, mouth floor Dental abscess Attention deficit disorder (ADD) Anxiety Past Family History Family History Father , 41 Heart disease Myocardial infarction Other No history of previous surgery No known health problems Past Surgical History Surgical History (Updated 06/18/24 @ 13:11 by Shane Barbosa MD) History of ERCP Tubal ligation status S/P cholecystectomy Social History Smoking Status: Current every day smoker tobacco type: cigarettes Smoking cigarettes per day: 1 pack Do You Dip or Chew Tobacco: No Hx Alcohol Use: No Hx Substance Use: Yes substance use type: marijuana Last Used Substance: Just Prior to Arrival Physical Exam Vital Signs Last Vital Signs Temp 36.7 C 06/18/24 12:17 Pulse 65 06/18/24 12:17 Resp 18 06/18/24 12:17 BP 131/85 06/18/24 12:17 Pulse Ox 100 06/18/24 12:17 O2 Del Method Room Air 06/18/24 12:17 Testing Laboratory Results 06/18/24 07:49 06/18/24 07:49 Hemoglobin A1c 5.3 % (4.5-5.6) 06/18/24 07:49 Urine Color Yellow 06/17/24 15:30 Urine Appearance Clear (Clear) 06/17/24 15:30 Urine pH 6.0 (4.5-7.5) 06/17/24 15:30 Ur Specific [place] 1.007 (1.000-1.030) 06/17/24 15:30 Urine Protein Negative (Negative) 06/17/24 15:30 Urine Glucose (UA) Negative (Negative) 06/17/24 15:30 Urine Ketones Negative (Negative) 06/17/24 15:30 Urine Nitrite Negative (Negative) 06/17/24 15:30 Ur Leukocyte Esterase Negative (Negative) 06/17/24 15:30
[2024-06-18] MEDS: LACTATED RINGER'S 1,000 ML IV SCH (13:18)
--- NOTE | 2024-06-18 13:30 | History & Physical Bridge Note ---
Date of Service June 18, 2024 History & Physical Bridge Note I have examined the patient, reviewed the History & Physical and in the interval since the performance of the History & Physical I have noted the following changes of clinical significance: no changes noted Swelling more localized to the Floor of the mouth and masseter space right sdire
[2024-06-18] MEDS: CHLORHEXIDINE GLUCONATE 0.12% 480 ML MT ONE (13:58)
[2024-06-18] MEDS ORDERED: ACETAMINOPHEN 1000 MG/100 ML IV IV ONE (14:05)
[2024-06-18] MEDS ORDERED: SUGAMMADEX SODIUM 200 MG/2 ML VIAL IV ONE (14:10)
[2024-06-18] MEDS: BUPIVACAINE/EPINEPHRINE 0.5% 1:200,000 1.8 ML CARP ONE (14:14)
[2024-06-18] MEDS: fentaNYL citrate PF 100 MCG/2 ML VIAL IV PRN (14:35)
--- NOTE | 2024-06-18 14:35 | Post Operative Brief Note ---
PG Immediate Post Op with CF Date of Surgery June 18, 2024 Pre & Post Diagnosis Operation Date: 06/18/24 13:15 Pre-Op Diagnosis: DENTAL ABCESS Post-Op Diagnosis: DENTAL ABCESS I identified the patient and participated in the time-out.: Yes Procedure Operation Date: 06/18/24 13:15 Actual Procedures p Right Lower Jaw Incision and Drainage - [facility] DMD s Extraction , 30, 31 - [facility] DMD Surgeon Cas[facility] Haywood DMD Director Of Marketing Communications none Estimated Blood Loss 5 Findings Consistent with Post-Op Diagnosis Floor of the mouth,submandibular and masseter space abscess Specimens Specimen Description: 1) Submandibular right abscess. Complications none Disposition Accompanied Patient To Recovery: Yes
[2024-06-18] MEDS: HYDROmorphone INJ 1 MG/ML SYRINGE IV PRN (14:58)
--- NOTE | 2024-06-18 15:24 | Anesthesiology Progress Note ---
Date of Service June 18, 2024 Anesthesia Post Procedure Vital Signs Vital Signs: Temp Pulse Pulse Resp BP Pulse Ox O2 Del Method 06/18/24 15:05 64 14 136/92 95 Room Air 06/18/24 14:55 60 14 138/89 98 Room Air 06/18/24 14:45 71 14 142/93 H 98 Room Air 06/18/24 14:35 63 18 136/86 99 Room Air 06/18/24 14:28 36.1 C L 81 19 136/98 100 Oxymask 06/18/24 12:17 36.7 C 65 18 131/85 100 Room Air 06/18/24 08:08 36.4 C L 56 L 14 140/78 98 Room Air 06/18/24 07:26 36.4 C L 80 16 137/90 100 Room Air 06/17/24 19:17 36.8 C 69 16 129/84 96 Room Air 06/17/24 16:17 36.4 C L 66 16 135/86 97 Room Air 06/17/24 16:00 Room Air 06/17/24 15:33 71 12 133/84 96 Room Air O2 Flow Rate 06/18/24 15:05 06/18/24 14:55 06/18/24 14:45 06/18/24 14:35 06/18/24 14:28 6 06/18/24 12:17 06/18/24 08:08 06/18/24 07:26 06/17/24 19:17 06/17/24 16:17 06/17/24 16:00 06/17/24 15:33 Pain Intensity Teeth: Pain Intensity: 9 Mouth: Pain Intensity: 7 Transfer of Care Handoff Completed per policy Notes Mental Status: alert / awake / arousable Patient Amnestic to Procedure: Yes Nausea / Vomiting: adequately controlled Pain: adequately controlled Airway Patency, RR, SpO2: stable & adequate BP & HR: stable & adequate Hydration State: stable & adequate Anesthetic Complications: no major complications apparent
--- NOTE | 2024-06-18 16:04 | Hospitalist Progress Note ---
Date of Service June 18, 2024 Assessment & Plan (1) Dental abscess: (2) Dental caries: (3) Empyema lung: (4) Failure of outpatient treatment: (5) Tobacco abuse: (6) Cellulitis, mouth floor: Plan Patient is a is a 38 yr female who has a significant PMH of Depression with anxiety and tobacco abuse who presents to ED 2/[address] Haywood due to worsening abscess and dental infection. Dental abscess with evidence of cellulitis to mouth floor Large dental caries --Neck CT:Large dental caries with periapical cyst formation of the right mandibular second bicuspid. Right mandibular cellulitis with 10 mm abscess. --S/P right lower jaw I&D, extraction , 30, 31 --Cultures pending Appreciate oromaxillary surgery input Advance diet as tolerated Pain control Continue Unasyn Needs follow-up with oromaxillary surgery on discharge Tobacco abuse Pulmonary emphysema as noted on CT soft tissue neck encourage cessation she declines nicotine patch Depression with Anxiety/ADHD: continue home meds DVT Px: SCDs for now Code Status FULL CODE Admission and Anticipated Discharge Date Admission Date: June 17, 2024 Subjective Patient is seen and examined at bedside States having dental/jaw pain this morning No other complaints Denies any chest pain, dyspnea, nausea, vomiting, abdominal pain Discussed with oromaxillary surgery today Patient had I&D today Review of Systems Review of Systems: All systems reviewed & are unremarkable except as noted in Subjective Physical Exam Physical Exam: Physical Exam: Vitals signs as noted above General Appearance:Moderately built and nourished, no apparent distress Head: normocephalic, Atraumatic, R submandibular/submental swelling, tenderness Eyes: normal inspection, EOMI Neck: supple, Trachea midline Respiratory/Chest: Normal breath sounds, CTA, No accessory muscle use Cardiovascular: S1, S2, No murmur Abdomen/GI:Soft, Non tender, Bowel sounds present Extremities/Musculoskeletal:normal inspection, no edema Neurologic/Psych:AAOX3, grossly no focal neurological deficits Skin: normal color, warm Results & Data Results & Data Vital Signs (Past 12 Hours) Vital Signs Temp Pulse Pulse Resp BP Pulse Ox O2 Del Method 06/18/24 15:55 36.3 C L 64 18 140/88 96 Room Air 06/18/24 15:35 56 L 22 125/84 95 Room Air 06/18/24 15:25 61 19 155/85 H 97 Room Air 06/18/24 15:15 37 C 59 L 19 127/87 93 Room Air 06/18/24 15:05 64 14 136/92 95 Room Air 06/18/24 14:55 60 14 138/89 98 Room Air 06/18/24 14:45 71 14 142/93 H 98 Room Air 06/18/24 14:35 63 18 136/86 99 Room Air 06/18/24 14:28 36.1 C L 81 19 136/98 100 Oxymask 06/18/24 12:17 36.7 C 65 18 131/85 100 Room Air 06/18/24 08:08 36.4 C L 56 L 14 140/78 98 Room Air 06/18/24 07:26 36.4 C L 80 16 137/90 100 Room Air O2 Flow Rate 06/18/24 15:55 06/18/24 15:35 06/18/24 15:25 06/18/24 15:15 06/18/24 15:05 06/18/24 14:55 06/18/24 14:45 06/18/24 14:35 06/18/24 14:28 6 06/18/24 12:17 06/18/24 08:08 06/18/24 07:26 Laboratory Results Short CBC 06/18/24 Range/Units 07:49 WBC 6.77 (4.8-10.8) K/ul Hgb 13.2 (12.0-16.0) g/dl Hct 40.6 (37.0-47.0) % Plt Count 231 (130-400) K/uL BMP 06/18/24 07:49 Sodium 141 Potassium 4.2 Chloride 109 H Carbon Dioxide 30 BUN 10 Creatinine 0.79 Glucose 90 Calcium 9.0
[2024-06-19 07:22] LABS: Hematocrit (blood only) 38.6 % (37.0-47.0); Hemoglobin 13.3 g/dl (12.0-16.0); Mean Corpuscular Hemoglobin 31.1 pg (25.0-34.0); Mean Corpuscular Hgb Conc 34.5 g/dL (32.0-36.0); Mean Corpuscular Volume 90.2 fL (80.0-100.0); Mean Platelet Volume 10.9 fL (9.4-12.4); Platelet Count 237 K/uL (130-400); RDW Coefficient of Variation 12.4 % (11.5-14.5); RDW Standard Deviation 41.1 fL (36.4-46.3); Red Blood Count 4.28 M/uL (4.20-5.40); White Blood Count 11.63 K/ul (4.8-10.8)
[2024-06-19 07:39] LABS: Calcium 8.8 mg/dl (8.6-10.3); Creatinine Clr Calc Pharmacy 94.6 ml/min; Magnesium 1.8 mg/dl (1.7-2.4); Potassium 4.2 mmol/L (3.5-5.1)
[2024-06-19] MEDS: DESVENLAFAXINE SUCCINATE ER TABLET PO SCH (08:04)
[2024-06-19] MEDS: LORazepam 2 MG/1 ML VIAL IV STA (08:19)
[2024-06-19 08:52] VITALS: BP 145/77; PULSE 66; RESP 18; TEMP 97.7; O2SAT 98
--- NOTE | 2024-06-19 09:55 | Discharge Summary ---
Discharge Summary Date of Service June 19, 2024 Principal Dx & Hospital Course #1 = Principal Diagnosis (1) Dental abscess: (2) Dental caries: (3) Empyema lung: (4) Failure of outpatient treatment: (5) Tobacco abuse: (6) Cellulitis, mouth floor: Plan Patient is a is a 38 yr female who has a significant PMH of Depression with anxiety and tobacco abuse who presents to ED 2/[address] Haywood due to worsening abscess and dental infection. Dental abscess with evidence of cellulitis to mouth floor Large dental caries --Neck CT:Large dental caries with periapical cyst formation of the right mandibular second bicuspid. Right mandibular cellulitis with 10 mm abscess. --S/P right lower jaw I&D, extraction , 30, 31 --Cultures pending Appreciate oromaxillary surgery input Advance diet as tolerated Pain control Discharge on oral Augmentin per Dr. Haywood Post operative instructions as per Dr. Haywood in discharge instructions Needs follow-up with oromaxillary surgery on discharge Tobacco abuse Pulmonary emphysema as noted on CT soft tissue neck encourage cessation she declines nicotine patch Depression with Anxiety/ADHD: continue home meds Pt with freq panic attacks and currently having one as she is very tearful give small dose of lorazpam 0.25mg IV Will get patient discharged as this is likely contributing to her anxiety DVT Px: SCDs for now Code Status FULL CODE Notes For Next Care Provider Medication Changes From Visit Complete course of Augmentin Admission HPI Per Admitting Provider This is a 38 yr old F who has a significant PMH of Depression with anxiety and tobacco abuse who presents to ED 2/[address] Haywood due to worsening abscess and dental infection. She was seen in ED on 06/13 due to pain to R cheek/chin area that had been worsening for a few months. She received 3g IV unasyn x 1 and discharged home on oral Augmentin. Her sx to her R check have decreased minimally in size but she still had a great deal of pain. She was set up to see Dr. Haywood today who feels she needs to undergo surgical I and D and multiple tooth extraction. Hx obtained from pt, mother at bedside, chart review and ED provider. Plan is to go to OR later today or tomorrow. Pt reports significant pain to R mandibular area and swelling. She rates her pain 8.5/10. She has been using Tylenol, ibuprofen and oral oxy IR w/o relief. She reports mild nausea but no vomiting. Initially she had fever prior to presenting to ED, but that has since resolved. She denies chills, dizziness, lightheaded, chest pain, sob, vomiting, diarrhea, change in bowel or urinary habits. In ED she received IV antibiotics and will be given IV analgesia. She currently smokes 0.5ppd and has a medical marijuana card. She denies any other elicit substance use and states she rarely drinks alcohol. Her Father sustained a fatal HI at the age of 42 otherwise no pertinent medical hx. Admission Exam Per Admitting Provider Constitutional: WD/WN, vitals as above, NAD, sitting up in bed, pleasant, conversing easily Head: Normocephalic, Atraumatic Eyes: PERRL, conjunctivae normal, anicteric sclerae ENMT: external ear and nose normal, oropharynx normal, poor dentition, R mandibular swelling and area of fluctuance with submental swelling Neck: trachea midline, no thyromegaly normal visual inspection Respiratory: normal respiratory effort, lungs clear to auscultation, no wheeze, rales, rhonchi. Normal insp/exp effort, no accessory muscle use Cardiovascular: RRR, no murmur, no edema Vessels: no JVD or carotid bruit Chest: normal inspection of chest Abdomen: normal bowel sounds, soft, nontender, no hepatosplenomegaly Musculoskeletal: no cyanosis or clubbing, AROM x4 Skin: no rashes, warm and dry normal turgor Neurologic: no face palsy, no dysarthria CN's II-XI intact bilaterally and moves all extremities Psychiatric: A+Ox3, euthymic affect Discharge Exam Gen: WD/WN, NAD, A&O x3, pt tearful/anxious HEENT: Normocephalic, atraumatic, conjunctivae moist, sclerae anicteric, mucous membranes moist. Poor dentition, swelling to R mandible but improving Lung: Clear to Auscultation bilaterally, no wheezes/rales/rhonchi Heart: Regular rate, regular rhythm, no murmurs, rubs, or gallops Abdomen: Soft, NT, ND +BS x 4 Extremities: No edema Skin: Warm, no rash, negative turgor. Updated Medication List Medication Instructions Recorded Confirmed Type clonazepam 0.5 mg tablet 0.5 mg PO BID PRN Anxiety 06/17/24 06/19/24 History desvenlafaxine succinate 100 mg 100 mg PO DAILY 06/17/24 06/19/24 History tablet,extended release 24 hr gabapentin 600 mg tablet 600 mg PO DAILY 06/17/24 06/19/24 History amoxicillin 875 mg-potassium 1 tab PO Q12H oral-facial 06/18/24 06/19/24 Rx clavulanate 125 mg tablet infection #20 tabs oxycodone 5 mg tablet 5 mg PO Q3H PRN pain #10 tabs 06/18/24 06/19/24 Rx Saccharomyces boulardii 250 mg 250 mg PO DAILY #7 caps 06/19/24 06/19/24 Rx capsule (Florastor) oxycodone 5 mg tablet 5 mg PO Q4H PRN pain #14 tabs 06/19/24 Rx oxycodone 5 mg tablet 5 mg PO Q4H PRN pain #14 tabs 06/19/24 06/19/24 Rx Hospital Stay Data Consultations 06/17/24 14:32 ED Decision to Admit Stat 06/17/24 14:42 Consult Oromaxillofacial Surgery Routine Procedures Performed Operation Date: 06/18/24 13:15 Actual Procedures p Right Lower Jaw Incision and Drainage - Cas[facility] Haywood DMD s Extraction , 30, 31 - Cas[facility] DMD Pending Results Patient Have Any Pending Studies at Discharge: Yes Discharge Instructions Given to Patient (Per Discharging Provider) MEDICATIONS: Please take antibiotic as prescribed by Dr. Haywood and complete in its entirety. It is recommended you take a daily probiotic while on antibiotic therapy. Please take daily a stool softener ( SENNA S) while taking prescription pain medication. These medications will cause you to be constipated. It is recommended you continue to alternate Tylenol and ibuprofen for pain. Use Oxycodone as needed for SEVERE pain. Please continue all of your prescribed medications. ADDITIONAL ACTIVITY RECOMMENDATIONS: * [place] teeth after every meal. It is very important to keep your mouth clean to prevent infection. * Starting tonight rinse with the Peridex as directed then 2 x a day * it is very important to keep well hydrated, this prevents fever and possible dry socket pain SPECIAL CARE INSTRUCTIONS: *It is not uncommon that between day 2-4 that your swelling will be at its worst this is very normal, do not be alarmed. * Keep ice on the side of your face for the next 24 to 36 hours. This will help keep the swelling down. * After 36 hours, apply heat (hot water bottle or heating pad) for the next two days, as often as possible. * Tomorrow start rinsing your mouth with 1/2 teaspoon salt in 8 ounces warm water. This rinse should be used every 4-6 hours. * You may experience slight nausea. To prevent this, never take your medication on an empty stomach. If nauseated, take small sips of calvin wayne until you feel better; then you may start on applesauce and toast. * Some swelling is common. It should gradually decrease within 4-5 days. * A certain amount of bleeding is to be expected. It is often possible to control mild oozing by placing folded gauze over the area and biting down for 30 minutes. If you are unable to control excessive bleeding, call Dr Haywood at [phone] * You may experience some discomfort for a few days. If pain or swelling increases, Call Dr Haywood * Return to the office for a follow up check up on: * office address--[employer] phone # [phone] Total Time Total Time Spent Total Time Spent (In Minutes): 35 minutes Supervising Physician Co-Signing Physician Notes Reviewed the chart in detail. Discussed the case with the collaborating advanced practitioner. I agree with the documentation as above. I have reviewed and confirmed the patients medical history, thefindings on physical examination, and the patients diagnosis and treatment plan with Ivonne Garza PA-C and agree with the information documented.
--- NOTE | 2024-06-24 09:15 | Operative Report ---
PG Post Operative Report Pre & Post Diagnosis Operation Date: 06/18/24 13:15 Pre-Op Diagnosis: DENTAL ABCESS Post-Op Diagnosis: DENTAL ABCESS I identified the patient and participated in the time-out.: Yes Procedure Operation Date: 06/18/24 13:15 Actual Procedures p Right Lower Jaw Incision and Drainage - [facility] DMD s Extraction 28, 30, 31 - [facility] DMD Surgeon Cas[facility] Haywood DMD Media Promoter none Estimated Blood Loss 5 Findings Consistent with Post-Op Diagnosis Specimens C/S right karissa. drainage Drains none Anesthesia Type General Complications none Disposition Accompanied Patient To Recovery: Yes Indications infection not responding to out patient therapy or oral antibiotics Description of Procedure CPT 61891------W&D floor of mouth abscess D7210 x 3-------Surgical extraction of # 28,30,31 ICD 10 K12.2---Infection floor of the mouth ICD 10 H04.7---Infected teeth Actual Procedures p Incision and Drainage right masseter, floor of the mouth and submandibular space Abscess; Removal of Tooth #28,30,31(Not Applicable) - Cas[facility] Haywood DMD Once cleared for surgery general anesthesia was achieved, the eyes were protected by the anesthesia dept criteria. A time out was take for patient ID, antibiotics, equipment and position verification once all agreed the procedure began. Local anesthesia using Marcaine with a vasoconstrictor ( 1.8 ml per site) given into right inferior alveolar nerve A throat pack was placed after the oral cavity was irrigated with saline. Once a surgical level of anesthesia was obtained and the local anesthesia was given time for the blocks the surgery was started. I turned my attention to the infection which was located in the floor of the mouth,masseter and submandibular area. The tongue was elevated and there was also swelling associated with tooth # 28,30,31 ( see CT scan report) Incision and Drainage CPT 13611------K&D floor of mouth abscess ICD 10 K12.2---Infection floor of the mouth Using a 15 blade an incision was made medial to the alveolar ridge and lateral to the duct of the submandibular gland. Once the incision was made a lot of pus extruded from the site. This drainage was cultured for anaerobic and aerobic bacteria. A curved hemostat was carefully placed into the infected space along the medial side of the lower jaw and into the submandibular space. I turned the. hemostat posterior and drained the masseter space Some further drainage was now allowed to escape. I palpated the chin,cheek and submental area and no further drainage was expressed. The area was irrigated with at least 100 ml of NS solution. I now turned my attention to remove the 3 infected and carious teeth 28,30,31 Lower right side teeth # 28,30,31 (D7210 X 3) D7210 x 3-------Surgical extraction of # 28,30,31 ICD 10 H04.7---Infected teeth The full thick Muco-periosteal flap was made on the facial aspect from # the retromolar pad anterior to site # 26. The flap was reflected to expose the the subperiosteal space the bone adjacent to the posterior mandible. The rongeur was used to remove bone, the 3 teeth were now exposed. With a dental forceps and a 301 elevator I was able to remove the 3 teeth, the mental nerve was intact, there was a large amount of granulation tissue on the apex and some more pus that was expressed. I irrigated the area under the flap and smoothed the irregular bone. Closure was obtained with a 4-0 Vicryl suture. The I&D site was lightly closed to allow drainage. I inspected the sites to insure all bleeding was controlled. I removed the throat pack and suctioned the throat. Bilateral gauze pressure dressings were placed. All instrument and sponge count was correct. The patient was allowed to awake from the anesthesia. Once full awake the anesthesia tube was removed and the patient was taken to the recovery room with all vital sign stable. The patient tolerated the surgery very well. I will follow the patient in my office, Rx and instructions will be given upon discharge. I attest to the content of the Intraoperative Record and any orders documented therein. Any exceptions are noted below.
== END 2024-06-19 10:39 | disposition home or self-care (01) | DRG 157 ==
LOC: ED 13:48 → 3N 14:42 → SUATTDRO 14:42 → 3N 15:42